=== PATIENT | female | born 1940 | race Caucasian/White ===

== ENCOUNTER 2016-09-13 12:36 | Inpatient (IN) | payer MEDICARE ==
[~2016-09-13] VITALS: Ht 172.7 cm; Wt 98.8 kg
[~2016-09-13 12:36] MED LIST: ASPI325T32 PO; CALC-881 PO; CHOL200020 PO; EMOL177L7 TP; GLUC-123 PO; KEN1O TOP; LAMO100T2 PO; LEVE500T76 PO; LEVO750T39 PO; LIP40 PO; LOSA25TA21 PO; METO-274 PO; NIFE90TA31 PO; POTA10TA12 PO
[2016-09-13 12:52] VITALS: BP 86/47; PULSE 80; RESP 14; O2SAT 97
--- NOTE | 2016-09-13 13:03 | ED.REPORT ---
HPI-Extremity Problem Upper Date of Service Sep 13, 2016 ED Provider: Mango Mejia DO The patient is a 75 year old female with history of eczema, hypertension, hyperlipidemia, coronary artery disease, COPD, atrial fibrillation, asthma, stroke with mild residual weakness, and seizure disorder, who presents to the emergency department for a worsening rash to her left upper extremity. She was seen at urgent care yesterday and placed on Clindamycin. The rash was noted to be worse today when she was re-evaluated at urgent care. It was also reported that she has seemed more confused than normal. Nursing Notes Stated Complaint: CELLULITIS Chief Complaint: Extremity Trauma Nursing Notes Reviewed: Yes Allergies: Coded Allergies: shellfish derived (Verified Allergy, Unknown, 06/02/15) warfarin (Verified Allergy, Unknown, 06/02/15) Uncoded Allergies: TRIMETHOPRIM/SULFA (Allergy, Unknown, severe shakiness, 03/25/15) Scheduled Amlodipine (Amlodipine) 5 Mg Tablet 5 MG PO DAILY Aspirin (Aspirin) 325 Mg Tablet.dr 325 MG PO DAILY Atorvastatin (Lipitor) 40 Mg Tablet 40 MG PO DAILY Calcium Carbonate/Vitamin D3 (Calcium 250+D Tablet) 1 Each Tablet 2 EACH PO DAILY Cholecalciferol (Vitamin D3) (Vitamin D3) 2,000 Unit Tablet 2,000 UNIT PO DAILY Furosemide (Furosemide) 20 Mg Tab 20 MG PO DAILY Gluc/Miguel-MSM#2/C/D3/Colby/Born (Zxncrnxfar-Lzkznljcfgy-AIZ Tab) 1 Each Tablet 1 EACH PO DAILY Hydrochlorothiazide (Hydrochlorothiazide) 25 Mg Tablet 25 MG PO DAILY Lamotrigine (Lamotrigine) 100 Mg Tablet 250 MG PO BID Levetiracetam (Levetiracetam) 500 Mg Tab.er.24h 500 MG PO BID Losartan Potassium (Losartan Potassium) 50 Mg Tablet 50 MG PO DAILY Metoprolol Succinate ER (Metoprolol Succinate ER) 100 Mg Tab.er.24h 100 MG PO DAILY Wayne-3/Dha/Epa/Fish Oil (Fish Oil 1,000 mg Softgel) 1 Each Capsule 15 EACH PO DAILY Petrolatum,White (Vaseline White Petroleum) 5 Gm Oint.pack 1 APPLIC TOPICAL BID Potassium Chloride ER (Potassium Chloride ER) 10 Meq Tablet 10 MEQ PO DAILY TAKE WITH FOOD Triamcinolone Acet (Triamcinolone Acetonide Ointment) 1 Applic/0.25 Gm Oint 60 APPLIC TOP BID General Time Seen by MD: 13:01 Chief Complaint Arm injury left Hx Obtained From: Patient Arrived By: Walk-in Onset Occurred: 3 days ago Symptom Duration: Since onset Location: : Arm left Quality: Painful Severity: Current: No pain currently Severity: Maximum: Mild Pertinent Negative: Pt denies other symptoms Recent Healthcare: No recent hospitalization, Recent doctor visit Similar Sx Previous: No Past Medical History Past Medical History Bilateral pleural effusion, right greater than left, uncertain etiology. Thoracentesis fluid is transudative with final culture results pending Chest discomfort-with multivessel coronary artery disease though no critical lesions History of paroxysmal atrial fibrillation, intolerant of warfarin and TSOACs History of CVA with mild persistent right-sided weakness Seizure disorder, stable Eczema History of asthma Mild dementia Reports: Asthma, COPD, Hyperlipidemia, Hypertension, Stroke Past Surgical History Per patient: brain surgery for abnormal growth behind her eyes Reports: Cholecystectomy Family History Noncontributory Smoking History Never Smoker Social History Alcohol Use: Denies alcohol use Drug Use: Denies drug use Other Social History: Good social support, Local resident Ambulatory Status Cane Review of Systems Musculoskeletal: Reports: Extremity pain, Extremity swelling Skin: Reports Rash, Reports Swelling Neurologic: Reports: Confusion Complete sys rev & neg: except as marked. Physical Exam Initial Vital Signs Vital Signs (First) Date Time Temp Pulse Resp B/P Pulse Ox O2 Delivery O2 Flow Rate FiO2 09/13/16 12:52 35.9 80 14 86/47 97 Room Air Initial VS: Reviewed Head / Eyes: Atraumatic, Normocephalic, PERRL ENT: Mucous membranes moist, Conjunctiva normal, No scleral icterus Neck: Supple, Non-tender, Full range of motion Respiratory: Breath sounds normal, Clear to auscultation, No respiratory distress Cardiovascular: Regular rate & rhythm, Heart sounds normal, Intact distal pulses Abdomen / GI: Soft, Non-tender, No guarding, No rebound, No distention Lymphatic: No lymphadenopathy Lower Extremities: Vascular intact, Neuro intact, No swelling, No tenderness Neurologic: Alert, Oriented, Nonfocal Psychiatric: Mood/affect normal, Behavior normal, Normal thought content General/Constitutional: Awake, Alert, Cooperative Skin: Warm, Dry Rash / Lesion Notes: Extensive left forearm cellulitis with a 1 cm incision from a prior abscess I&D Interpretation & Diagnostics Lab Results Interpretation Result Diagram: 09/13/16 1357 09/13/16 1357 Test 09/13/16 13:57 White Blood Count 15.9th/mm3 (3.8-10.1) Red Blood Count 4.01mil/mm3 (3.90-5.20) Hemoglobin 12.5g/dL (12.0-15.6) Hematocrit 37.6% (35.0-46.0) Mean Corpuscular Volume 93.8fL (81-100) Mean Corpuscular Hemoglobin 31.2pg (27.0-35.0) Mean Corpuscular Hemoglobin Concent 33.2% (32.0-37.0) Red Cell Distribution Width 12.7% (12.3-15.4) Platelet Count 253bil/L (150-400) Neutrophils (%) (Auto) 75% (40-74) Lymphocytes (%) (Auto) 7% (14-46) Monocytes (%) (Auto) 1% (4-12) Eosinophils (%) (Auto) 0% (0-5) Basophils (%) (Auto) 0% (0-3) Band Neutrophils % 17% (1-5) Prothrombin Time 12.3sec (8.1-12.5) Prothromb Time International Ratio 1.15ratio Sodium Level 138mEq/L (134-144) Potassium Level 3.4mEq/L (3.5-5.2) Chloride Level 97mEq/L (97-108) Carbon Dioxide Level 23mmol/L (18-29) Blood Urea Nitrogen 42mg/dL (8-27) Creatinine 1.57mg/dL (0.57-1.00) Estimat Glomerular Filtration Rate 46mL/min (>59) Glucose Level 114mg/dL (60-99) Lactic Acid Level 2.3mmol/L (0.4-2.0) Calcium Level 9.2mg/dL (8.5-10.1) Magnesium Level 1.6mg/dL (1.6-2.6) Total Bilirubin 1.3mg/dL (0.0-1.2) Aspartate Amino Transf (AST/SGOT) 42U/L (0-50) Alanine Aminotransferase (ALT/SGPT) 42U/L (0-32) Alkaline Phosphatase 122U/L (25-165) Troponin T < 0.010ug/L (0.0-0.011) Total Protein 5.9g/dL (6.4-8.4) Albumin 3.3g/dL (3.4-5.0) ECG Interpretation ECG Interpretation: Atrial fibrillation with a rate of 72 LBBB Time: 13:48 Interpreted by: ED physician X-Ray Interpretation Xray Interpretation: IMPRESSION: No radiographic evidence for advanced bony infection. No radiopaque soft tissue foreign bodies. Dictated by: Aamir Olea M.D. on 09/13/2016 at 13:39 X-Ray Ordered: Radius ulna left Interpretation / Wet Read by: Interpret - Radiologist Re-Eval/Medical Decision Med Decision/Clinical Course Cellulitis with signs of sepsis. Patient will be admitted. Source of Hx: Old records Re-Evaluation/Progress #1: Time of Eval: 14:14 Re-Evaluation/Progress Note: Rechecked the patient. She is feeling okay. Re-Evaluation/Progress #2: Time of Eval: 14:30 Re-Evaluation/Progress Note: Discussed plan for admission. Consultation : Referral / Consult Name: Jayashree Wharton MD Consulted With: Hospitalist Requested Call at: 14:42 Call Returned at: 15:20 Diesel Technician: Will see patient, Agrees with eval, Agrees with plan, Accepts admit Counseled Regarding: Diagnosis, Lab results, Need for admission Discharge & Departure Impression: Primary Impression: Cellulitis Site of cellulitis: extremity Site of cellulitis of extremity: upper extremity Laterality: left Qualified Code: L03.114 - Cellulitis of left upper limb Additional Impression: Sepsis Sepsis type: sepsis due to unspecified organism Qualified Code: A41.9 - Sepsis, unspecified organism Disposition: ADMITTED TO HOSPITAL Discharge Condition All VS Reviewed: Yes Condition: Stable Referrals: Arturo Bell DO (PCP) Camille Attestation Portions of this note were transcribed by Blanca Byrd. I, Dr. Mejia personally performed the history, physical exam and medical decision-making; I reviewed and confirmed the accuracy of the information in the transcribed note. Signed by: Camille Eckert, 09/13/2016 at 7505. copies to: Arturo Bell Timothy S DO Sep 13, 2016 13:03 Blanca Byrd Sep 13, 2016 13:08
[2016-09-13] MEDS ORDERED: 0.9% Sodium Chloride 1,000 ML IV ONE (13:40)
[2016-09-13] MEDS ORDERED: 0.9% Sodium Chloride 1,000 ML IV SCH ×3 (13:40→16:22)
--- NOTE | 2016-09-13 13:41 | DRSVH ---
PROCEDURE: X-RAY LEFT FOREARM, TWO VIEWS ([id number]) INDICATIONS: 75 year-old female with left forearm redness and swelling for several days. TECHNIQUE: 2 views of the forearm were acquired. COMPARISON: None. FINDINGS: Bones: No fractures or dislocations. No bony destruction or erosions. No suspicious bony lesions. T here is scaphotrapezial and first carpometacarpal joint degeneration. Soft tissues: No suspicious soft tissue densities. IMPRESSION: No radiographic evidence for advanced bony infection. No radiopaque soft tissue foreign b odies. Dictated by: Aamir Olea M.D. on 09/13/2016 at 13:39 Approved by: Aamir Olea M.D. on 09/13/2016 at 13:40
[2016-09-13 14:00] LABS: Mean Corpuscular Volume 93.8 fL (81-100)
[2016-09-13 14:03] LABS: Mean Corpuscular Hemoglobin 31.2 pg (27.0-35.0); Platelet Count 253 bil/L (150-400)
[2016-09-13] MEDS ORDERED: cefTRIAXone Inj 2,000 MG in Dextrose 5% Minibag Plus 50 ML IV ONE (14:15)
[2016-09-13 14:16] LABS: INR 1.15 ratio
[2016-09-13 14:25] LABS: BASOPHILS % (AUTO) 0 % (0-3); EOSINOPHILS % (AUTO) 0 % (0-5); MONOCYTES % (AUTO) 1 % (4-12); NEUTROPHILS % (AUTO) 75 % (40-74)
[2016-09-13] MEDS ORDERED: Vancomycin Inj 1,750 MG in 0.9% Sodium Chloride 500 ML IV ONE (14:25)
[2016-09-13] MEDS ORDERED: Clindamycin Inj 600 MG in IV Premix 1 EACH IV ONE (14:30)
[2016-09-13 14:42] LABS: TROPONIN T < 0.010 ug/L (0.0-0.011)
[2016-09-13 14:44] LABS: Magnesium 1.6 mg/dL (1.6-2.6)
[2016-09-13] MEDS ORDERED: OMEG-38 PO (15:09)
[2016-09-13] MEDS ORDERED: HYDR25TA4 PO (15:09)
[2016-09-13] MEDS ORDERED: CALC-235 PO (15:09)
[2016-09-13] MEDS ORDERED: PETR5OIN3 TOPICAL (15:09)
[2016-09-13] MEDS ORDERED: FUR20 PO (15:09)
[2016-09-13] MEDS ORDERED: METO-274 PO (15:09)
[2016-09-13] MEDS ORDERED: AMLO5TAB2 PO (15:09)
[2016-09-13] MEDS ORDERED: LOSA50TA37 PO (15:09)
[2016-09-13] MEDS ORDERED: CHOL200025 PO (15:10)
[2016-09-13] MEDS ORDERED: Alum-Mag Hydrox-Simeth 30 mL Suspension PO PRN (16:15)
[2016-09-13] MEDS ORDERED: Ondansetron 2 mg/mL 2 mL Inj IVPUSH PRN (16:15)
[2016-09-13] MEDS: 0.9% Sodium Chloride 1,000 ML IV SCH (16:22)
[2016-09-13] MEDS ORDERED: Magnesium Sulf 2 Gm/50mL Water 2 GM in IV Premix 1 EACH IV ONE (16:25)
[2016-09-13 16:27] VITALS: BP 97/38; PULSE 74; RESP 16
[2016-09-13 16:42] VITALS: BP 105/54; PULSE 76; RESP 16; O2SAT 98
[2016-09-13 16:50] VITALS: PULSE 78
[2016-09-13] MEDS: Heparin 5,000 Unit/mL Inj SUBQ SCH (18:10)
[2016-09-13] MEDS: Sodium Chloride LOK Flush 10 mL Syringe IVFLUSH SCH (18:11)
[2016-09-13] MEDS ORDERED: PETROLATUM WHITE TOPICAL PRN (18:50)
--- NOTE | 2016-09-13 18:51 | PCM.CONPHA ---
Subjective Date of Service: Sep 13, 2016 Reason for Pharmacy Consult: Vancomycin Dosing Objective Vital Signs Date Time Temp Pulse Resp B/P Pulse Ox O2 Delivery O2 Flow Rate FiO2 09/13/16 16:50 78 09/13/16 16:42 36.9 76 16 105/54 98 Room Air 09/13/16 16:27 74 16 97/38 09/13/16 12:52 35.9 80 14 86/47 97 Room Air Weight (Kilograms): 94.900 Height (Feet): 5 Height (Inches): 4.00 Test 09/13/16 13:57 White Blood Count 15.9th/mm3 (3.8-10.1) Red Blood Count 4.01mil/mm3 (3.90-5.20) Hemoglobin 12.5g/dL (12.0-15.6) Hematocrit 37.6% (35.0-46.0) Mean Corpuscular Volume 93.8fL (81-100) Mean Corpuscular Hemoglobin 31.2pg (27.0-35.0) Mean Corpuscular Hemoglobin Concent 33.2% (32.0-37.0) Red Cell Distribution Width 12.7% (12.3-15.4) Platelet Count 253bil/L (150-400) Neutrophils (%) (Auto) 75% (40-74) Lymphocytes (%) (Auto) 7% (14-46) Monocytes (%) (Auto) 1% (4-12) Eosinophils (%) (Auto) 0% (0-5) Basophils (%) (Auto) 0% (0-3) Band Neutrophils % 17% (1-5) Prothrombin Time 12.3sec (8.1-12.5) Prothromb Time International Ratio 1.15ratio Sodium Level 138mEq/L (134-144) Potassium Level 3.4mEq/L (3.5-5.2) Chloride Level 97mEq/L (97-108) Carbon Dioxide Level 23mmol/L (18-29) Blood Urea Nitrogen 42mg/dL (8-27) Creatinine 1.57mg/dL (0.57-1.00) Estimat Glomerular Filtration Rate 46mL/min (>59) Glucose Level 114mg/dL (60-99) Lactic Acid Level 2.3mmol/L (0.4-2.0) Calcium Level 9.2mg/dL (8.5-10.1) Magnesium Level 1.6mg/dL (1.6-2.6) Total Bilirubin 1.3mg/dL (0.0-1.2) Aspartate Amino Transf (AST/SGOT) 42U/L (0-50) Alanine Aminotransferase (ALT/SGPT) 42U/L (0-32) Alkaline Phosphatase 122U/L (25-165) Troponin T < 0.010ug/L (0.0-0.011) Total Protein 5.9g/dL (6.4-8.4) Albumin 3.3g/dL (3.4-5.0) Assessment/Plan Assessment/Plan Vancomycin dosing per pharmacy Indication: sepsis, cellulitis Vancomycin trough goal: 15-20 Patient received vancomycin 1750 mg IV one time loading dose in the ED. Possible YOUNG (SCr = 1.57, CrCl ~35 mL/min today), SCr was 0.56 in August 2015 -- so will check trough 24 hours after bolus prior to ordering maintenance dose. Vancomycin trough has been ordered for 09/14/16 @ 1430. Pharmacy to continue to monitor and dose vancomycin daily. Thank you, Nuria Holman Pharmacist Nuria Holman Sep 13, 2016 18:51
[2016-09-13 19:49] VITALS: BP 107/65; PULSE 95; RESP 20; O2SAT 92
--- NOTE | 2016-09-13 19:51 | NUR ---
Arrived from ED Pt arrived from ED at approximately 1630. Pt ambulated to bed with cane. Cellulitis left arm, hard bump left upper arm and left lower arm. VSS Care continues.
[2016-09-13 20:37] VITALS: BP 109/45; PULSE 86; RESP 16; O2SAT 97
--- NOTE | 2016-09-13 21:15 | DRSVH ---
PROCEDURE: CT UPPER EXTREMITY LT W CON INDICATIONS: 75 year-old female with left forearm redness and swelling for several days. TECHNIQUE: After the administration of intravenous contrast, 3 mm axial sections acquired of the left upper extr emity, with coronal and sagittal reformats. For radiation dose reduction, the following was used: a utomated exposure control, adjustment of mA and/or kV according to patient size. COMPARISON: [facility], US, US EXTREMITY LTD, 09/12/2016, 13:53. [facility], CR, XR FOREARM 2VW LT, 09/13/2016, 13:00. FINDINGS: Image quality: Excellent. Bones: No fracture or dislocation. No bony erosion or periosteal reaction. Soft tissues: There is diffuse soft tissue edema and thickening consistent with cellulitis. There is subcutaneous fluid. A subtle rim-enhancing subcutaneous fluid collection is noted over the olecranon measuring 1.2 x 5.3 x 8.5 cm, suspicious for developing abscess. IMPRESSION: 1. Skin thickening and subcutaneous edema consistent with cellulitis. 2. Subcutaneous fluid collection around elbow suspicious with subtle rim-enhancement, suspicious for developing abscess. Dictated by: Ward Moreno M.D. on 09/13/2016 at 20:57 Approved by: Ward Moreno M.D. on 09/13/2016 at 21:14
[2016-09-13] MEDS: lamoTRIgine 100 mg Tablet PO SCH (22:28)
[2016-09-13] MEDS: levETIRAcetam 500 mg Tablet PO SCH (22:28)
[2016-09-14] VITALS (20 sets, daily range): BP systolic 97–139; BP diastolic 42–73; PULSE 79–130; RESP 14–18; O2SAT 90–98
[2016-09-14] MEDS: Heparin 5,000 Unit/mL Inj SUBQ SCH ×3 (00:30→15:44)
[2016-09-14] MEDS: Sodium Chloride LOK Flush 10 mL Syringe IVFLUSH SCH ×3 (00:30→15:42)
[2016-09-14] MEDS: Benzocaine-Menthol Lozenge 2/Pkg PO PRN ×3 (00:30→05:34)
--- NOTE | 2016-09-14 00:59 | PCM.HPMED ---
Subjective Date of Service Sep 13, 2016 Primary Provider: Admitting Physician: Jayashree Wharton MD Primary Care Physician: Arturo Bell DO Attending Physician: Jayashree Wharton MD History of Present Illness: cc: left arm cellulitis/abscess worse HISTORY was OBTAINED FROM PATIENT / MEDITECH NOTES History of present illness 75-year-old female, w/ chronic diffuse eczema, went to for Left forearmproximal ulnar abscess lanced w/ rocephine 2 days ago, unable to fill clindamycin script, presented to urgent care for follow up w/ worsened diffuse forearm cellulitis and sent to ER today. Per ER notes and floor RN, she is confused. not much pain, no paresthesia, able to use remote control w/ affected arm. does not remember prior boil hx. no trauma hx. mild diffuse excoriations throughout body due to eczema. In the ER, low temperature, low blood pressure, vancomycin and Rocephin, 1 L normal saline Review of Systems - none of the following - F/C/sick contact / wt change/ JACK / lightheaded / dizziness / sob / cough / cp / acid reflux / n/v/diarrhea / bleeding/bruising / leg swelling / change in voiding / yeast infections / rash ambulates FAMILY HX eczema SOCIAL HX never smoker no alcohol use MEDICATIONS Scheduled Amlodipine (Amlodipine) 5 Mg Tablet 5 MG PO DAILY Aspirin (Aspirin) 325 Mg Tablet.dr 325 MG PO DAILY Atorvastatin (Lipitor) 40 Mg Tablet 40 MG PO DAILY Calcium Carbonate/Vitamin D3 (Calcium 250+D Tablet) 1 Each Tablet 2 EACH PO DAILY Cholecalciferol (Vitamin D3) (Vitamin D3) 2,000 Unit Tablet 2,000 UNIT PO DAILY Furosemide (Furosemide) 20 Mg Tab 20 MG PO DAILY Gluc/Miguel-MSM#2/C/D3/Colby/Born (Wesyjaugdm-Lcrkagjknng-WLH Tab) 1 Each Tablet 1 EACH PO DAILY Hydrochlorothiazide (Hydrochlorothiazide) 25 Mg Tablet 25 MG PO DAILY Lamotrigine (Lamotrigine) 100 Mg Tablet 250 MG PO BID Levetiracetam (Levetiracetam) 500 Mg Tab.er.24h 500 MG PO BID Losartan Potassium (Losartan Potassium) 50 Mg Tablet 50 MG PO DAILY Metoprolol Succinate ER (Metoprolol Succinate ER) 100 Mg Tab.er.24h 100 MG PO DAILY Denver-3/Dha/Epa/Fish Oil (Fish Oil 1,000 mg Softgel) 1 Each Capsule 15 EACH PO DAILY Petrolatum,White (Vaseline White Petroleum) 5 Gm Oint.pack 1 APPLIC TOPICAL BID Potassium Chloride ER (Potassium Chloride ER) 10 Meq Tablet 10 MEQ PO DAILY TAKE WITH FOOD Triamcinolone Acet (Triamcinolone Acetonide Ointment) 1 Applic/0.25 Gm Oint 60 APPLIC TOP BID Past Medical/Surgical HX Mild dementia Cataracts CHF/atrial fibrillation since winter 2015, intermittent paroxysmal intolerance of warfarin/anticogaulants / CVA November 2005 with residual weakness Seizure/brain tumor Asthma/COPD/pneumonia Kidney stone Wrist arthritis/eczema Tonsillectomy hysterectomy appendectomy cholecystectomy brain surgery Allergies Coded Allergies: shellfish derived (Verified Allergy, Unknown, 06/02/15) warfarin (Verified Allergy, Unknown, 06/02/15) Uncoded Allergies: TRIMETHOPRIM/SULFA (Allergy, Unknown, severe shakiness, 03/25/15) PMH Social History Hx Alcohol Use: No Hx Substance Use: No Hx Tobacco Use: No Smoking Status: Never Smoker Exam Vital Signs Vital Sign - Last Date Time Temp Pulse Resp B/P Pulse Ox O2 Delivery O2 Flow Rate FiO2 09/13/16 12:52 35.9 80 14 86/47 97 Room Air Lab and Diagnostics Labs Exam on admission room air NAD A and O x 3 mood affect WNL NC/AT no icterus no injected eyes EOMI PERRL /no pharyngeal lesions/ no oral lesions / hearing intact Supple neck CTAB equal chest rise / no accessory muscle use / speaks in full sentences / no rrw RRR S1 S2 / no mrg / 2+ radial pulses Soft nt nd + BS no hepatosplenomegaly No edema no cyanosis no ecchymosis of lower extremities No rash / no jaundice EDWARDS symmetrical facies left forearm diffusely erythematous fluctuant proximal radial aspect, prior Incision present at proximal ulnar aspect, poor pulse but cap refill comparable bilateral STUDIES EKG atrial fibrillation, left bundle branch block Trop normal at 2 PM BNP lactic acid 2.3 UA pending Creatinine 1.57 << 0.5-0.68 Magnesium 1.6 LFT INR 1.15, ALP 42, bilirubin 1.3 WBC 15.9, left shift bandemia Imaging CT forearm indicative of abscess by olecranon forearm Xray- no advanced bony infection Result Diagram: 09/13/16 1357 09/13/16 1357 Assessment & Plan Active issues and reason for admission Sepsis, lactic acidosis due to cellulitis, s/p lanced ulnar aspect abscess at urgent care, did not take outpatient clindamycin, developed new radial aspect forearm (on exam) and olecranon (on CT)abscesses, contributory chronic eczema associated excoriations throughout body. --appreciate Dr Salmon/gen surg -- IV fluids, hold blood pressure medications -- Rocephin and vancomycin -- npo MN, hold am ASA.heparin new YOUNG --IVF 100/hr --low threshold to dc vancomycin Chronic issues known prior to admission, present on admission Mild dementia Cataracts CHF/atrial fibrillation since winter 2015, intermittent paroxysmal intolerance of warfarin/anticogaulants / CVA November 2005 with residual weakness Seizure/brain tumor Asthma/COPD/pneumonia Kidney stone Wrist arthritis/eczema Diet cardiac / NPO MN DVT prophylaxis heparin scd ambulate Code full, Per ER nurse, family is bringing in advance directive Assessment and plan were discussed with patient Jayashree Wharton MD Sep 13, 2016 16:22
[2016-09-14] MEDS: 0.9% Sodium Chloride 1,000 ML IV SCH ×3 (01:01→15:42)
--- NOTE | 2016-09-14 02:25 | CONS ---
[address] [address] CONSULTATION REPORT PATIENT: TAMMIE DICK : 1940 MR#: [id number] ADMIT: 09/13/2016 JOB ID: [id number] DATE OF SERVICE: 09/13/2016 CHIEF COMPLAINT: This is a 75-year-old woman with a left forearm abscess. This consultation is requested by Jayashree Wharton MD. HISTORY OF PRESENT ILLNESS: This is a 75-year-old woman with a history of eczema who presented with a left forearm abscess to urgent care. A limited incision and drainage was performed with what the patient describes as copious purulent drainage. However, she developed additional swelling and redness and presented to the emergency department. An x-ray was performed without sign of bony abnormality. She is admitted to the hospital and is being instituted on antibiotics. She ate some yogurt earlier today. White blood cell count is 15.9, and she is afebrile. PAST MEDICAL HISTORY: 1. History of pleural effusions. 2. History of paroxysmal atrial fibrillation, intolerant of warfarin. 3. History of CVA. 4. Seizure disorder. 5. Eczema. 6. History of asthma. 7. Dementia. PAST SURGICAL HISTORY: 1. Cholecystectomy. 2. History of a brain surgery of unknown etiology. MEDICATIONS: Amlodipine, aspirin, atorvastatin, calcium carbonate, vitamin D 3, furosemide, hydrochlorothiazide, lamotrigine, levetiracetam, losartan, metoprolol, potassium, triamcinolone. ALLERGIES: 1. SHELLFISH. 2. COUMADIN, 3. TRIMETHOPRIM/SULFA. FAMILY HISTORY: Reviewed and noncontributory. SOCIAL HISTORY: She has never been a smoker. She denies alcohol and drug use. REVIEW OF SYSTEMS: Eleven point review of systems is positive for left upper extremity pain and swelling as well as a rash. She reports some confusion. It is otherwise negative. PHYSICAL EXAMINATION: Temperature 35.9, heart rate 80, blood pressure 86/47, respiratory rate of 14, saturation 97% on room air. General: Awake, alert, no acute distress. Head: Normocephalic. Neck: Supple. Cardiac: Regular rate and rhythm. Respiratory: Clear to auscultation bilaterally at the apices. Abdomen: Soft. Extremities: Bilateral upper extremities are examined. The left upper extremity has diffuse erythema and fluctuance on the radial aspect just distal to the elbow. On the ulnar aspect at the mid point is a previous incision and drainage site without active purulence. There is no sign of infection on the right. LABORATORIES: White blood cell count of 15.9. CBC is otherwise within normal limits. Comprehensive metabolic panel is normal with exception of potassium 3.4, BUN 42, creatinine 1.57, glucose 114, bilirubin 1.3, ALT of 42, albumin 3.3. Lactate is 2.3. IMAGING: X-ray of the forearm shows no radiographic evidence for bony infection and no radiopaque soft tissue foreign bodies. ASSESSMENT: A 75-year-old woman with cellulitis and associated abscess of the left forearm. RECOMMENDATIONS: I agree with institution of parenteral antibiotics. I have ordered a CT scan of the forearm to determine the depth of infection. I have consented and booked her for incision and drainage for tomorrow. She may eat dinner tonight and should be n.p.o. at midnight. My partner, Dr. Santiago, is the surgeon bond clerk tomorrow, and his decision making with respect to this case will be dependent upon the findings on CT scan. Thank you very much for this interesting consultation.
[2016-09-14 02:52] LABS: APPEARANCE,URINE HAZY (CLEAR,HAZY); COLOR,URINE YELLOW (YELLOW); OCCULT BLOOD,URINE TRACE (NEGATIVE); UROBILINOGEN,URINE NORMAL (NORMAL)
[2016-09-14 04:20] LABS: Mean Corpuscular Hemoglobin 31.2 pg (27.0-35.0); Platelet Count 252 bil/L (150-400)
[2016-09-14 04:44] LABS: BASOPHILS % (AUTO) 0 % (0-3); EOSINOPHILS % (AUTO) 1 % (0-5); MONOCYTES % (AUTO) 2 % (4-12); NEUTROPHILS % (AUTO) 65 % (40-74)
--- NOTE | 2016-09-14 06:17 | NUR ---
Tachycardia Pt afib 90s throughout shift; transient increase in HR at approx. 0300 with assc. chills, mild increase in temperature, difficulty breathing, weakness, and "hallucinations" per pt report. Pt states "I think I'm having a reaction to whatever you're giving me - does that have shellfish in it?", gesturing to IVF. Pt educated to NS infusion. paged r/t prior LUE CT earlier in shift that utilized contrast; no new orders placed. Pt demonstrates spontaneous improvement throughout rest of shift. VSS.
[2016-09-14] MEDS: cefTRIAXone Inj 2,000 MG in Dextrose 5% Minibag Plus 50 ML IV SCH (07:47)
[2016-09-14] MEDS: lamoTRIgine 100 mg Tablet PO SCH ×2 (07:47→22:37)
[2016-09-14] MEDS: levETIRAcetam 500 mg Tablet PO SCH ×2 (07:47→22:36)
[2016-09-14] MEDS: Vancomycin Dose per Pharmacist XX SCH (07:48)
[2016-09-14] MEDS ORDERED: Vancomycin Dose per Pharmacist XX SCH (08:30)
[2016-09-14 08:40] LABS: BASOPHILS % (AUTO) 0.1 % (0-3); EOSINOPHILS % (AUTO) 1.1 % (0-5); MONOCYTES % (AUTO) 5.2 % (4-12); Mean Corpuscular Hemoglobin 31.4 pg (27.0-35.0); Mean Corpuscular Volume 93.5 fL (81-100); NEUTROPHILS % (AUTO) 83.3 % (40-74); Platelet Count 261 bil/L (150-400)
--- NOTE | 2016-09-14 09:50 | NUR ---
To OR pt a/ox3. pt transported to OR via [facility]. SL. scd sleeves on. telemetry informed. departed unit about 0950.
[2016-09-14] MEDS ORDERED: Lactated Ringer's 1,000 ML IV ONE ×2 (10:10→10:46)
[2016-09-14] MEDS ORDERED: Ketamine 10 mg/mL 20 mL Inj ONE (10:18)
[2016-09-14] MEDS ORDERED: fentaNYL-PF 50 mCg/mL 2 mL Inj ONE (10:18)
[2016-09-14] MEDS ORDERED: Propofol 10,000 mCg/mL 20 mL Inj ONE (10:18)
[2016-09-14] MEDS ORDERED: Ondansetron 2 mg/mL 2 mL Inj ONE (10:18)
[2016-09-14] MEDS ORDERED: Lactated Ringer's 500 ML IV PRN (10:46)
[2016-09-14] MEDS ORDERED: Lactated Ringer's 1,000 ML IV SCH (10:46)
--- NOTE | 2016-09-14 10:46 | PCM.HPANE ---
Patient Data Surgeon Admitting Provider:Jayashree Wharton MD Attending Provider:Jayashree Wharton MD Primary Care Physician:Arturo Bell DO Other Provider: Reason for Visit Cellulitis,Sepsis Ht/WT & BMI Height (Feet): 5 Height (Inches): 8.00 Weight (Kilograms): 94.500 Body Mass Index 35.18 Allergies Coded Allergies: shellfish derived (Verified Allergy, Unknown, 06/02/15) warfarin (Verified Allergy, Unknown, 06/02/15) Uncoded Allergies: TRIMETHOPRIM/SULFA (Allergy, Unknown, severe shakiness, 03/25/15) Past Anesthesia History Anesthesia History: Positive for:: Abnormal Airway (poor dental hygiene- fragile appearing teeth. One front tooth missing), Denies:: Anesthesia Reactions, Difficult Intubation Diabetes History Hx Diabetes?: No MRSA MRSA: No Medications Hypertension Medication: No Home Meds Incl Beta Oscar: No Reported Medications Cholecalciferol (Vitamin D3) (Vitamin D3)2,000 Unit Tablet2,000 Unit PO DAILY 09/13/16 Metoprolol Succinate ER 100 Mg Tab.er.43b511 Mg PO DAILY 09/13/16 Petrolatum,White (Vaseline White Petroleum)5 Gm Oint.pack1 Applic TOPICAL BID 09/13/16 Losartan Potassium 50 Mg Ivmwug95 Mg PO DAILY 09/13/16 Hydrochlorothiazide 25 Mg Ntfcmd65 Mg PO DAILY 09/13/16 Furosemide 20 Mg Tab20 Mg PO DAILY 09/13/16 [place]-3/Dha/Epa/Fish Oil (Fish Oil 1,000 mg Softgel)1 Each Iyawgxx17 Each PO DAILY 09/13/16 Calcium Carbonate/Vitamin D3 (Calcium 250+D Tablet)1 Each Tablet2 Each PO DAILY 09/13/16 Amlodipine 5 Mg Tablet5 Mg PO DAILY 09/13/16 Triamcinolone Acet (Triamcinolone Acetonide Ointment)1 Applic/0.25 Gm Oint60 Applic TOP BID 08/22/15 Potassium Chloride ER 10 Meq Rjawyp26 Meq PO DAILY TAKE WITH FOOD 08/22/15 Atorvastatin (Lipitor)40 Mg Muwhcl96 Mg PO DAILY 08/22/15 Levetiracetam 500 Mg Tab.er.48n791 Mg PO BID 11/16/13 Lamotrigine 100 Mg Wylbzr506 Mg PO BID 11/16/13 Gluc/Miguel-MSM#2/C/D3/Colby/Born (Xurykodffw-Cqutqtxzwnk-QQE Tab)1 Each Tablet1 Each PO DAILY 11/16/13 Aspirin 325 Mg Tablet.dr325 Mg PO DAILY 11/16/13 Discontinued Reported Medications Cholecalciferol (Vitamin D3) (Vitamin D-3)2,000 Unit Capsule2,000 Unit PO DAILY 11/16/13 Nifedipine ER 90 Mg Tab.er.2490 Mg PO DAILY #30 TABLET Ref 0 11/16/13 Emollient Combination No.92 (Lubriderm Daily Moisture)177 Ml Bznwwo383 Ml TP DAILY 11/16/13 Calcium Carb & Cit/Vitamin D3 (Calcium + Vitamin D3 Caplet)1 Each Tablet.er2 Each PO DAILY 11/16/13 Discontinued Scripts Levofloxacin 750 Mg Obetfd505 Mg PO DAILY 5 Days Ref 0 Prov:Gurwinder Villar MD 08/26/15 Metoprolol Succinate ER 100 Mg Tab.er.00d223 Mg PO DAILY #60 TABLET Ref 0 Prov:Ramón Gilbert MD 11/19/13 Losartan Potassium 25 Mg Nitipm21 Mg PO DAILY #60 TABLET Prov:Ramón Gilbert MD 11/19/13 History History of ENT Problems?: Yes HEENT History: Positive for:: Cataracts (left eye, needs surgery) Denies:: Abnormal Airway Difficult Intubation Dysphagia Glaucoma Sinus Problem Hx of Heart Problems?: Yes Cardiovascular History: Positive for:: Chest Pain Congestive Heart Failure Edema Hypertension Irregular Heartbeat (ATRIAL FIBRILLLATION,INTERMITTENT,DISCOVERED WITHIN LAST 6 MONTHS) Denies:: Cardiac Surgery Heart Murmur Pacemaker Thrombophlebitis Hx of Respiratory Problem?: Yes Respiratory History: Positive for:: Asthma COPD Dyspnea Pneumonia Denies:: Chest Surgery Emphysema Hemoptysis Tuberculosis Hx Neurologic Problems?: Yes Neurological History: Positive for:: CVA (November 2005) Seizures (BROUGHT ON BY BRAIN TUMOR) Denies:: Alzheimer's Disease Dementia Dizziness Headaches Parkinson's Disease Hx of GI Problems?: No Gastrointestinal History: Denies:: Diverticulitis Gastroesphageal Reflux Gastrointestinal Bleeding Heartburn Hepatitis Hiatal Hernia Rectal Bleeding Hx of Problems?: Yes Genitourinary History: Positive for:: Kidney Stones (one kidney stone) Denies:: HX of Hemodialysis Urinary Tract Infection HX of Peritoneal Dialysis: No Female Hx: Denies:: Currently Endometriosis Pelvic Inflammatory Problems with Breasts? Hx Musculoskeletal Problems?: Yes Musculoskeletal History: Denies:: Back Injury Joint Replacement Musculoskeletal Trauma Hx of Psycho/Social Problems?: No Hx Surgeries?: Yes (TONSILLECTOMY,HYSTERECTOMY,APENDECTOMY) Hx Any Other Health Problems?: Yes Other History: Positive for:: Hospitalization (pneumonia) Denies:: Cancer Thyroid Disease History Blood Transfusions: Positive for:: Accept Blood Products? Blood Transfusions (2005) Denies:: Blood Transfuse Reaction Hx Diabetes: No Hx Alcohol Use: NoHx Substance Use: No Smoking Status: Never Smoker Have You Smoked inLast 12 mo: No Stop/Bang Treated for Sleep Apnea?: No Do You Have a CPAP Machine?: No S-Snoring: Do You Snore Loudly: No T-Tired: feel tired, fatigued: No O-Obsered: Observed not breath: No P-Blood Pressure: treated: Yes B- Body Mass Index > 35 kg/m2: No A- Age over 50: Yes N- Neck Large Circumference: No G- Gender Male: No LYNETTE Total Score: 1 LYNETTE Risk Assessment: Low Risk, <3 Yes LYNETTE Category 4 OutPt Procedure: Yes Risk Assessment Category Category 1A: Patient has history of documented sleep apnea, and HAS NOT received any narcotic, sedative or anesthesia administration during this stay. Category 1B: Patient has history of documented sleep apnea, and HAS received any narcotic , sedative or anesthesia administration during this stay Category 2: Patient has SUSPECTED Obstructive Sleep Apnea, and HAS received any narcotic , sedative or anesthesia administration during this stay. Category 3: Patient has SUSPECTED Obstructive Sleep Apnea and HAS NOT received narcotic, sedative or anesthesia administration during this stay. Category 4: Outpatient in Procedural Areas with known sleep apnea or who screen positive for High Risk via the STOP/BANG questionnaire. Exam Exam Vital Signs Vital Signs Date Time Temp Pulse Resp B/P Pulse Ox O2 Delivery O2 Flow Rate FiO2 09/14/16 07:25 37.8 123 18 130/62 94 Room Air 09/14/16 05:26 79 09/14/16 03:55 37.9 118 16 111/52 97 Room Air General Appearance: Alert, Oriented X3, Cooperative, No Acute Distress HEENT/AIRWAY: MP 2 Lungs: Clear to Auscultation, Normal Air Movement Heart: Exam Unremarkable, Regular Rate/Rhythm, No Murmurs/Rubs/Gallops Meds/Labs/Diagnostics Admission Meds Current Medications Sodium Chloride 1,000 ml @ 0 mls/hr Q0M ONCE IV Last administered on 14:21; Start 09/13/16 at 13:40; Stop 09/13/16 at 13:41; Status DC Ceftriaxone Sodium 2000 mg/ Dextrose/Water 50 ml @ 100 mls/hr ONCE ONCE IV Last administered on 09/13/16 14:15; Start 09/13/16 at 14:15; Stop 09/13/16 at 14:44; Status DC Vancomycin HCl 1750 mg/Sodium Chloride 500 ml @ 333.333 mls/hr OT ONCE IV Last administered on 09/13/16 15:19; Start 09/13/16 at 14:25; Stop 09/13/16 at 15:54; Status DC Magnesium Sulfate 2 gm/Premix 50 ml @ 50 mls/hr ONCE ONCE IV Last administered on 09/13/16 18:03; Start 09/13/16 at 16:25; Stop 09/13/16 at 17:24 ; Status DC Ceftriaxone Sodium/Dextrose/ Water (Rocephin Inj/ D5W Minibag Plus) 50 ml @ 100 mls/hr Q24 IV Last administered on 09/14/16 07:47; Start 09/14/16 at 08:30 Heparin Sodium (Porcine) 5000 unit 5,000 unit Q8 SUBQ Last administered on 09/14 00:30; Start 09/13/16 at 17:00 Sodium Chloride (Normal Saline) 1,000 ml @ 100 mls/hr Q10H IV Last administered on 09/14/16 01:01; Start 09/13/16 at 16:22 Sodium Chloride (Saline Mone Flush) 10 ml MONE IVFLUSH Last administered on 00:30; Start 09/13/16 at 16:30 Lamotrigine (LaMICtal) 250 mg BID PO Last administered on 09/14/16 07:47; Start 09/13/16 at 22:00 Levetriacetam (Keppra) 500 mg BID PO Last administered on 09/14/16 07:47; Start 09/13/16 at 22:00 Atorvastatin Calcium (Lipitor) 40 mg DAILY PO Last administered on 4/15/17at 07 :47; Start 09/14/16 at 08:30 Labs Test 09/13/16 13:57 09/14/16 02:30 09/14/16 04:00 09/14/16 08:25 Prothrombin Time 12.3sec (8.1-12.5) Prothromb Time International Ratio 1.15ratio Magnesium Level 1.6mg/dL (1.6-2.6) Troponin T < 0.010ug/L (0.0-0.011) Urine Color Yellow (YELLOW) Urine Appearance Hazy (CLEAR,HAZY) Urine pH 6.0 (5.0-8.0) Urine Specific [place] 1.030 (1.003-1.035) Urine Protein Tracemg/dL (NEG,TRACE) Urine Glucose (UA) Negativemg/dL (NEGATIVE) Urine Ketones Negativemg/dL (NEGATIVE) Urine Occult Blood Trace (NEGATIVE) Urine Nitrite Negative (NEGATIVE) Urine Bilirubin Negative (NEGATIVE) Urine Urobilinogen Normalmg/dL (NORMAL) Urine Leukocyte Esterase Trace (NEGATIVE) Urine RBC 0-2/hpf (0-2) Urine WBC 6-10/hpf (0-5) Urine Epithelial Cells Moderate/hpf (NONE-MOD) Urine Crystals None seen (NONE SEEN) Urine Bacteria Few/hpf (NONE-FEW) Urine Hyaline Casts None/lpf (NONE) Urine Granular Casts None seen (NONE SEEN) Urine Waxy Casts None seen (NONE SEEN) Urine Red Blood Cell Casts None seen (NONE SEEN) Urine White Blood Cell Casts None seen (NONE SEEN) Urine Mucus None seen (None Seen) Urine Trichomonas None seen (NONE SEEN) Urine Yeast None (NONE SEEN) Urinalysis Comment None Urine Culture Reflexed Indicated Band Neutrophils % 22% (1-5) Myelocytes % 1% (0-0) White Blood Count 15.9th/mm3 (3.8-10.1) Red Blood Count 4.01mil/mm3 (3.90-5.20) Hemoglobin 12.6g/dL (12.0-15.6) Hematocrit 37.5% (35.0-46.0) Mean Corpuscular Volume 93.5fL (81-100) Mean Corpuscular Hemoglobin 31.4pg (27.0-35.0) Mean Corpuscular Hemoglobin Concent 33.6% (32.0-37.0) Red Cell Distribution Width 12.9% (12.3-15.4) Platelet Count 261bil/L (150-400) Neutrophils (%) (Auto) 83.3% (40-74) Lymphocytes (%) (Auto) 7.4% (14-46) Monocytes (%) (Auto) 5.2% (4-12) Eosinophils (%) (Auto) 1.1% (0-5) Basophils (%) (Auto) 0.1% (0-3) Sodium Level 141mEq/L (134-144) Potassium Level 3.4mEq/L (3.5-5.2) Chloride Level 100mEq/L (97-108) Carbon Dioxide Level 22mmol/L (18-29) Blood Urea Nitrogen 27mg/dL (8-27) Creatinine 0.85mg/dL (0.57-1.00) Estimat Glomerular Filtration Rate 93mL/min (>59) Glucose Level 114mg/dL (60-99) Lactic Acid Level 1.6mmol/L (0.4-2.0) Calcium Level 9.4mg/dL (8.5-10.1) Total Bilirubin 0.7mg/dL (0.0-1.2) Aspartate Amino Transf (AST/SGOT) 40U/L (0-50) Alanine Aminotransferase (ALT/SGPT) 39U/L (0-32) Alkaline Phosphatase 162U/L (25-165) Total Protein 6.2g/dL (6.4-8.4) Albumin 3.1g/dL (3.4-5.0) Procalcitonin 1.38ng/mL (0.00-0.08) Plan Impression Patient chart reviewed, patient interviewed and anesthestic plan with risks, benefits, and alternatives discussed, and informed consent obtained. ASA Physical Status: ASA3 Severe Disease (hx afib, arm infection, hx brain tumor) Anesthetic Plan: GA Bene/Risks/Altern/Consents: Yes Placido Abarca MD Sep 14, 2016 10:46
[2016-09-14] MEDS ORDERED: MetoCLOpramide 5 mg/mL 2 mL Inj IVPUSH PRN (10:50)
[2016-09-14] MEDS ORDERED: Ondansetron 2 mg/mL 2 mL Inj IVPUSH PRN (10:50)
[2016-09-14] MEDS ORDERED: Phenylephrine 10,000 mCg/mL Inj IVPUSH PRN (10:50)
[2016-09-14] MEDS ORDERED: EPHEDrine Sulfate 50 mg/mL Inj IVPUSH PRN (10:50)
[2016-09-14] MEDS: fentaNYL-PF 50 mCg/mL 2 mL Inj IVPUSH PRN ×2 (11:38→12:00)
[2016-09-14] MEDS: HYDROmorphone 1 mg/mL Inj IVPUSH PRN ×3 (11:41→12:09)
--- NOTE | 2016-09-14 12:28 | PCM.ANEP1 ---
Post Anesthesia Phase 1 PACU Phase 1 Assessment Date of Service: Sep 13, 2016 Vital Signs Vital Signs Date Time Temp Pulse Resp B/P Pulse Ox O2 Delivery O2 Flow Rate FiO2 09/14/16 12:05 120 16 130/60 95 Room Air 09/14/16 12:00 104 16 111/54 98 Room Air 09/14/16 11:55 106 14 139/49 98 Room Air 09/14/16 11:50 100 17 132/54 97 Simple Mask 8 09/14/16 11:45 102 15 127/73 97 Simple Mask 8 09/14/16 11:40 100 16 135/57 96 Simple Mask 8 09/14/16 11:35 36.8 94 16 130/68 96 Simple Mask 8 09/14/16 11:32 96 09/14/16 07:25 37.8 123 18 130/62 94 Room Air 09/14/16 05:26 79 Anesthetic Administered: GA Level of Alertness: Awake, talking EDWARDS's with Equal Strength: Yes Pain: No Nausea or Vomiting: No Oxygen Delivery: Simple Mask Lungs: Clear to Auscultation, Normal Air Movement Dermatome Level: Full Sensation Placido Abarca MD Sep 14, 2016 12:28
--- NOTE | 2016-09-14 12:28 | PCM.ANEP2 ---
Post Anesthesia Evaluation ASA/CMS Post Anesthesia VS in Patient's Normal Range?: Yes Resp Stable; Airway Patent?: Yes CV Function & Hydration Stable: Yes Mental Status Recovered?: Yes Pain control Satisfactory?: Yes N/V Control Satisfactory?: Yes Placido Abarca MD Sep 14, 2016 12:28
--- NOTE | 2016-09-14 13:02 | NUR ---
Return to room 2027 pt alert and oriented, drowsy. responsive. VSS. O2 at 2L. LUE elevated on pillows. ice chips given. will continue to monitor.
--- NOTE | 2016-09-14 13:32 | PCM.PNMED ---
Subjective Date of Service Sep 14, 2016 Subjective Overnight patient remained in A. fib throughout the shift, reported chills and mild increase in temperature with difficulty breathing. Initial reports "hallucinations" per patient stating that she believes she was having a reaction to medication that she was administered. Today: Patient awake and alert sitting in hospital bed with family member at bedside in no apparent distress. Surgical team also in room prepping patient for scheduled surgery. Exam Vital Signs Vital Sign - Last Date Time Temp Pulse Resp B/P Pulse Ox O2 Delivery O2 Flow Rate FiO2 09/14/16 12:36 37.3 125 18 134/63 90 Nasal Cannula 2.00 Intake and Output 09/13/16 09/13/16 09/14/16 Cumulative From/Thru 15:00 23:00 07:00 09/13/16 12:52 - 09/14/16 06:35 Intake Total 1670 ml 963 ml 2633 ml Output Total 0 ml 300 ml 300 ml Balance 1670 ml 663 ml 2333 ml Intake Oral 0 ml 400 ml 400 ml IV Total 1670 ml 563 ml 2233 ml Output Urine Total 0 ml 300 ml 300 ml # Voids 4 4 Exam General: Awake and alert laying in hospital bed in no acute distress, well- developed, well-nourished, appropriately interactive HEENT: Normocephalic, atraumatic. External ears without defect. Pupils equal, round, and reactive to light and accommodation. Neck: Supple with full range of motion. Cardiovascular: Tachycardic rate with irregularly irregular rhythm. No murmurs present Pulmonary: Clear to auscultation bilaterally with no crackles, wheezes, or rhonchi. Normal respiratory effort with no use of accessory muscles. Abdomen: Bowel tones present. Soft, nontender, nondistended. Extremities: Left upper extremity swelling and erythema left lateral epicondyle area tender to palpation Neurological: Cranial nerves grossly intact. Psychiatric: Normal mood and affect. Alert and oriented to person, place, and time. IVs and Medications Medications Reviewed: Medications were reviewed in detail Lab and Diagnostics Result Diagram: 09/14/1682409/14/16824 Microbiology Abscess culture pending, urine culture pending, blood culture pending X-Rays, CTs and MRIs . X-RAY LEFT FOREARM, TWO VIEWS IMPRESSION: No radiographic evidence for advanced bony infection. No radiopaque soft tissue foreign bodies. Dictated by: Aamir Olea M.D. on 09/13/2016 at 13:39 CT UPPER EXTREMITY LT W CON IMPRESSION: 1. Skin thickening and subcutaneous edema consistent with cellulitis. 2. Subcutaneous fluid collection around elbow suspicious with subtle rim- enhancement, suspicious for developing abscess. Dictated by: Ward Moreno M.D. on 09/13/2016 at 20:57 Assessment & Plan Ms. Menjivar is a 75-year-old female with past medical history of A. fib not currently on anticoagulation, CVA, seizure disorder, eczema asthma and dementia admitted for sepsis secondary to abscess in her left upper extremity. Hospital day 2 1. Severe Sepsis. Present on admission. Ongoing - On admission patient Tachycardic, hyperthermic, hypotensive with lactic acidosis and leukocytosis secondary to probable source of left upper extremity abscess - CT showed left abscess area of olecranon. - Antibiotics to include clindamycin, ceftriaxone and vancomycin - Surgery consult, their expertise is appreciated. - Incision and drainage per surgery 2. Left upper extremity abscess. Present on admission. Ongoing - Patient seen in urgent care for left ulnar abscess which was lanced. Patient given ABX and DC'd which she was unable to fill. - ABX as in #1 - Surgery as in #1 3. Acute kidney injury. Present on admission. Resolved - Most likely secondary to hypotension, BP 86/47 on admit - Creatinine 1.57 on admission, trended down to 0.85 - Has received nephrotoxic antibiotics - IV fluids at 100 mL per hour - We will continue to monitor closely 4. Atrial fibrillation. Present on admission. Ongoing - Continued home metoprolol succinate 100 mg daily - Not currently on anticoagulation - Continued home aspirin Chronic issues 5. Seizure disorder. Present on admission. Ongoing - Continued home lamotrigine and Levitrictam 6. Hypertension. Present on admission. Ongoing - Held home amlodipine hydrochlorothiazide, furosemide, losartan secondary to hemodynamic state - We will consider restarting these post surgery 7. Hyperlipidemia. Present on admission. Ongoing - Continue home atorvastatin 40 mg daily Disposition: Patient remained inpatient status for at least one to 2 more days while we monitor surgical site and ensure no spread of infection. VTE Prophylaxis: Sub-Q Heparin (Unfractionated) Resuscitation Status: CPR: Attempt Resuscitation Attending Statement The patient was seen and examined together with Dr. Byrnes on 09/14/16 and I agree with the history, exam and plan as outlined in the note above. LUISA BYRNES DO Sep 14, 2016 13:32 Anand Fuentes MD Sep 14, 2016 22:14
[2016-09-14] MEDS ORDERED: Vancomycin Serum Trough XX ONE (14:30)
--- NOTE | 2016-09-14 15:25 | NUR ---
Social Work- Initial Assessment Data: See Initial Assessment. pt is a 75 year old female admitted 09/13/16 for cellulitis, sepsis per H&P. Pt underwent I&D today. Pt's insurance is [facility]. Pt's PCP is Arturo Bell DO through [facility]. SW met with pt regarding discharge plan, SW role explained. Pt alert and oriented x3. Pt resides alone in a senior apartment where she remains independent at [facility]. Pt reports her brother lives 3 miles away and her neighbor is a nurse who checks in on the pt occasionally. Pt has trouble recalling names secondary to a stroke. Pt uses a cane at base and does not drive. Pt has no history of HH or SNF, No LTC or VA benefits. Pt has no DPOA on file, states that she would want her brother Kamron Bowman to make medical decisions on her behalf. Pt denies any needs at discharge at this time. Pt to discharge home with brother to transport via POV. No anticipated discharge needs. SW will continue to follow Assessment: Pt who is independent at [facility]. Plan: Pt to discharge home with brother to transport via POV. No anticipated discharge needs. SW will continue to follow. JORGE Saldana Addendum: 09/14/16 at 1529 by AAMIR ZUÑIGA SS Amended: Links added.
--- NOTE | 2016-09-14 15:40 | NUR ---
HR morning dose of metoprolol withheld per MD bp parameters initially. pt trending with increasing HR, continued afib. Situation discussed with MD. instructed to give "morning" dose of metoprolol. will continue to monitor.
[2016-09-15] VITALS (10 sets, daily range): BP systolic 105–177; BP diastolic 40–85; PULSE 80–98; RESP 16–20; O2SAT 92–98
[2016-09-15] MEDS: Heparin 5,000 Unit/mL Inj SUBQ SCH ×3 (00:17→16:05)
[2016-09-15] MEDS: Sodium Chloride LOK Flush 10 mL Syringe IVFLUSH SCH ×3 (00:17→16:05)
[2016-09-15] MEDS: 0.9% Sodium Chloride 1,000 ML IV SCH (00:17)
[2016-09-15 04:40] LABS: BASOPHILS % (AUTO) 0.2 % (0-3); EOSINOPHILS % (AUTO) 3.3 % (0-5); MONOCYTES % (AUTO) 6.9 % (4-12); Mean Corpuscular Hemoglobin 31.2 pg (27.0-35.0); NEUTROPHILS % (AUTO) 69.5 % (40-74); Platelet Count 237 bil/L (150-400)
[2016-09-15 05:12] LABS: Magnesium 2.1 mg/dL (1.6-2.6)
--- NOTE | 2016-09-15 06:11 | OP ---
[address] [address] OPERATIVE REPORT PATIENT: TAMMIE DICK : 1940 MR#: [id number] ADMIT: 09/13/2016 JOB ID: [id number] DATE OF SURGERY: 09/14/2016 SURGEON: Steven Santiago MD VIDEO NEWS EDITOR: Jarocho Winters PA-C, and also Dr. Gutierrez, Resident 1. ANESTHESIA: General. PREOPERATIVE DIAGNOSIS(ES): Left forearm abscess. POSTOPERATIVE DIAGNOSIS(ES): Left forearm abscess. PRINCIPAL PROCEDURE: Incision and drainage of left forearm abscess. INDICATION FOR PROCEDURE: The patient is a 75-year-old female, with left forearm swelling. She underwent a limited I and D by Urgent Care two days ago. PRINCIPAL FINDING: A fairly large incision was made at the medial volar aspect of the forearm extending proximal above the elbow crease and the incision measured 15.5 cm. A counter incision at the lateral aspect of the forearm was made and this was only 5.5 cm. PROCEDURE COURSE: The patient was brought to the operating table and underwent general anesthesia. The patient had already received IV antibiotics. A time-out was performed. The patient's left upper extremity was then prepped and draped in the usual sterile fashion. Next, a time-out was performed. Next, along the previous I and D incision at the medial aspect of her ventral forearm, the incision was extended both distally and proximally, and a large amount of pus was evacuated. We had to extend the incision proximally to above the elbow crease because there was extension of the abscess and purulence. Blunt dissection was carried out using my finger. The abscess actually extended more laterally across the ventral forearm and, therefore, a counter incision was made at the lateral aspect of the forearm to allow for better drainage. Hemostasis was controlled using cautery. Pus that was obtained was sent for cultures. The medial incision measured a total of 15.5 cm and the lateral incision was 5.5 cm in length. Both wounds were irrigated out and packed with Kerlix at the end of the procedure. Sterile dressings were then placed over the wound. By the end of procedure, needle counts and sponge counts were correct. The patient was then extubated and taken to the recovery room in stable satisfactory condition.
--- NOTE | 2016-09-15 06:33 | NUR ---
left arm dressing left arm dressing is weeping at the superior aspect of the dressing (anterior antecubital) unwrapped coban, and rewrapped arm with abd and 2 kerlix wraps. re wrapped with coban. patient tolerated well. excellent cms to fingers. brisk cap refill. palpable radial pulse. elevated arm on 2 pillows. reassured.
[2016-09-15] MEDS: Vancomycin Dose per Pharmacist XX SCH (07:19)
--- NOTE | 2016-09-15 07:25 | PCM.PHAPRO ---
Progress Date of Service: Sep 15, 2016 Vancomycin dosing A/ Vancomycin trough came back low at 4.6 after a single dose of 1750mg vancomycin. Crcl has returned to a normal baseline. P/ Reload with 1750mg dose and then dose with 1500mg every 12 hours with the next trough due 09/16@1900. Pharmacy will continue to follow daily. Adán Grey Sep 15, 2016 07:25
[2016-09-15] MEDS ORDERED: Vancomycin Inj 1,750 MG in 0.9% Sodium Chloride 500 ML IV ONE (07:30)
[2016-09-15] MEDS: cefTRIAXone Inj 2,000 MG in Dextrose 5% Minibag Plus 50 ML IV SCH (07:35)
[2016-09-15] MEDS: levETIRAcetam 500 mg Tablet PO SCH ×2 (07:36→20:20)
[2016-09-15] MEDS: lamoTRIgine 100 mg Tablet PO SCH ×2 (07:37→20:20)
--- NOTE | 2016-09-15 07:49 | PCM.PNSURG ---
Subjective Visit Information: Reason for Visit Cellulitis,Sepsis Surgery/Surgery Date Post-Op Day # Date of Admission: Sep 13, 2016 at 15:12 Hospital Day # Subjective: sitting on commode, L arm wrapped by dressing, states it's better, can move it easier Objective Objective Awake Sitting on commode L arm dressing intact Vital Sign- Last 8 Hours Date Time Temp Pulse Resp B/P Pulse Ox O2 Delivery O2 Flow Rate FiO2 09/15/16 07:25 36.6 80 123/59 93 Room Air 09/15/16 05:58 93 09/15/16 04:19 37.0 92 16 121/58 93 Nasal Cannula 2.00 Intake and Output- Last 8 Hour 09/15/16 Cumulative From/Thru 07:00 09/13/16 12:52 - 09/15/16 06:20 Intake Total 1775 ml 6859 ml Output Total 700 ml 1800 ml Balance 1075 ml 5059 ml Intake Oral 600 ml 1600 ml IV Total 1175 ml 5259 ml Output Urine Total 700 ml 1600 ml Estimated Blood Loss 200 ml # Voids 4 8 Result Diagram: 09/15/16 0430 09/15/16 0430 Assessment & Plan Impression POD #1 s/p L forearm I & D Problems: Plan Will ask nursing to take dressing down and do dressing change today Wound Care Nurse to see tomorrow Abx per hospitalist service Await culture result VTE Prophylaxis: Sub-Q Heparin (Unfractionated) Resuscitation Status: CPR: Attempt Resuscitation Steven Santiago MD Sep 15, 2016 07:49
[2016-09-15] MEDS ORDERED: Potassium Chloride 20 mEq SR Tablet PO ONE (08:55)
--- NOTE | 2016-09-15 11:56 | NUR ---
left arm dressing With surgeon present and in to assess wound, dressing and packing removed. wound base beefy red. removed dressing with large amount sero-sanguineous drainage. medial and lateral incision re-packed with normal saline moistened kerlix and 4x4 gauze, respectively. abd pads applied and arm wrapped with kerlix. plan for wound care nurse to consult tomorrow. Addendum: 09/15/16 at 1200 by JULY MEDINA RN pt premedicated with oxycodone and tylenol per md orders. pt tolerated process well. cms continues to be intact.
--- NOTE | 2016-09-15 13:31 | PCM.PNMED ---
Subjective Date of Service Sep 15, 2016 Subjective Patient is a 75-year-old female with history of CVA, A. fib not currently on anticoagulation, seizure disorder, eczema, asthma and dementia admitted for sepsis secondary to abscess in her left upper extremity. Hospital day #2. No overnight events. Telemetry shows a fib/flutter overnight with heart rates in the 90s. Patient reports severe pain at the incision and drainage site. Patient states that she felt okay this morning but following manipulation of the dressing the pain is severe. Patient otherwise denies shortness of breath, fever, chills, nausea, emesis. She is tolerating PO. Exam Vital Signs Vital Sign - Last Date Time Temp Pulse Resp B/P Pulse Ox O2 Delivery O2 Flow Rate FiO2 09/15/16 07:25 36.6 80 123/59 93 Room Air 09/15/16 04:19 16 2.00 Intake and Output 09/14/16 09/14/16 09/15/16 Cumulative From/Thru 15:00 23:00 07:00 09/13/16 12:52 - 09/15/16 06:20 Intake Total 1350 ml 1101 ml 1775 ml 6859 ml Output Total 450 ml 350 ml 700 ml 1800 ml Balance 900 ml 751 ml 1075 ml 5059 ml Intake Oral 600 ml 600 ml 1600 ml IV Total 1350 ml 501 ml 1175 ml 5259 ml Output Urine Total 250 ml 350 ml 700 ml 1600 ml Estimated Blood Loss 200 ml 200 ml # Voids 4 8 Exam General: Supine in bed, moderate distress, well-developed, well-nourished, appropriately interactive HEENT: Normocephalic, atraumatic. External ears without defect. Cardiovascular: Irregularly irregular rhythm. No murmurs present Pulmonary: Clear to auscultation bilaterally with no crackles, wheezes, or rhonchi. Normal respiratory effort with no use of accessory muscles. Abdomen: Bowel tones present. Soft, nontender, nondistended. Extremities: Left upper extremity wrapped in dressing. The dressing was removed and reveals two surgical incisions - lateral forearm incision approximately 5cm in length and the medial incision approximately 18cm in length. Both incisions contained packing with serosanguineous drainage. Neurological: Cranial nerves grossly intact. Psychiatric: Normal mood and affect. Alert and oriented to person, place, and time. IVs and Medications Medications Reviewed: Medications were reviewed in detail Lab and Diagnostics Result Diagram: 09/15/1642909/15/16429 Microbiology Abscess culture pending, urine culture pending, blood culture pending X-Rays, CTs and MRIs . X-RAY LEFT FOREARM, TWO VIEWS IMPRESSION: No radiographic evidence for advanced bony infection. No radiopaque soft tissue foreign bodies. Dictated by: Aamir Olea M.D. on 09/13/2016 at 13:39 CT UPPER EXTREMITY LT W CON IMPRESSION: 1. Skin thickening and subcutaneous edema consistent with cellulitis. 2. Subcutaneous fluid collection around elbow suspicious with subtle rim- enhancement, suspicious for developing abscess. Dictated by: Ward Moreno M.D. on 09/13/2016 at 20:57 Assessment & Plan Patient is a 75-year-old female with history of CVA, A. fib not currently on anticoagulation, seizure disorder, eczema, asthma and dementia admitted for sepsis secondary to abscess in her left upper extremity. Hospital day #2. Post- op day #1. 1. Severe Sepsis. Present on admission. Resolved - On admission patient Tachycardic, hyperthermic, hypotensive with lactic acidosis and leukocytosis secondary to left upper extremity abscess - CT showed left abscess area of olecranon. - Antibiotics to include clindamycin, ceftriaxone and vancomycin - Culture and sensitivities pending 2. Left upper extremity abscess. Present on admission. Ongoing - Patient seen in urgent care for left ulnar abscess which was lanced. Patient prescribed antibiotics which she was unable to fill - s/p I&D. Post-op day #1 - Surgery following. Recommendations per Surgery appreciated - Wound care following. Recommendations per wound care appreciated - Antibiotics per above 3. Acute kidney injury. Present on admission. Resolved - Most likely secondary to hypotension, BP 86/47 on admit - Creatinine 1.57 on admission - Avoid nephrotoxins - Follow with BMP 4. Acute normocytic anemia. Not present on admission. Ongoing - Hgb 9.4 from 12.6 - Possibly multifactorial to surgery and hemodilution. No obvious source of bleeding - Follow with CBC 5. Atrial fibrillation, chronic. Present on admission. Ongoing - Continued home metoprolol succinate 100 mg daily - Not currently on anticoagulation - Continued home aspirin 6. Seizure disorder, chronic. Present on admission. Ongoing - Continued home lamotrigine and Keppra 7. Hypertension, chronic. Present on admission. Ongoing - Holding amlodipine, hydrochlorothiazide, furosemide, and losartan secondary to hemodynamic state. Will restart when BP begins to normalize 8. Hyperlipidemia, chronic. Present on admission. Ongoing - Continue home atorvastatin 40 mg daily Disposition: Pending hospital course and General Surgery recommendations. Patient currently receiving IV antibiotics with culture and sensitivities pending. VTE Prophylaxis: Sub-Q Heparin (Unfractionated) VTE Mechanical Devices: Intermittant Pneumatic CD Resuscitation Status: CPR: Attempt Resuscitation Attending Statement patient was seen independently and case discussed with Dr Chavez,I agree with the assessment and plan as outlined above Adryan Chavez DO Sep 15, 2016 09:45 Anand Fuentes MD Sep 15, 2016 16:18
--- NOTE | 2016-09-15 14:05 | NUR ---
KERI signed. Tiesha Leonard LARRY OPERATOR
[2016-09-15] MEDS ORDERED: Polyethylene Glycol (PEG) 17 Gm Powder PO PRN (15:15)
[2016-09-15] MEDS ORDERED: Alum-Mag Hydrox-Simeth 30 mL Suspension PO PRN (15:15)
[2016-09-15] MEDS ORDERED: Ondansetron 2 mg/mL 2 mL Inj IVPUSH PRN (15:15)
--- NOTE | 2016-09-15 18:33 | NUR ---
Pain and drowsy P: Pt. C/O L arm pain, requested pain relievers. I: PRN Roxicodone 5 mg PO given. Pt. reported Roxicodone was effective (pain dropped to 2/10) but made her sleepy and drowsy. E: Pt. appeared drowsy and forgetful. Reminded pt. to use call light for assistance. She transferred from bed to BSC with 1p assist. S: Will cut PRN Roxicodone dose in half (2.5 mg) should pt. ask for pain reliever in the future.
[2016-09-15] MEDS: Vancomycin Inj 1,500 MG in 0.9% Sodium Chloride 500 ML IV SCH (18:50)
[2016-09-16] VITALS (9 sets, daily range): BP systolic 138–169; BP diastolic 46–88; PULSE 91–130; RESP 16–20; O2SAT 93–97
[2016-09-16] MEDS: Heparin 5,000 Unit/mL Inj SUBQ SCH ×4 (00:04→23:39)
[2016-09-16] MEDS: Sodium Chloride LOK Flush 10 mL Syringe IVFLUSH SCH ×4 (00:06→23:37)
[2016-09-16 04:22] LABS: BASOPHILS % (AUTO) 0.2 % (0-3); MONOCYTES % (AUTO) 8.9 % (4-12); Mean Corpuscular Hemoglobin 30.9 pg (27.0-35.0); Mean Corpuscular Volume 95.7 fL (81-100); Platelet Count 283 bil/L (150-400)
[2016-09-16 04:51] LABS: Magnesium 1.9 mg/dL (1.6-2.6)
--- NOTE | 2016-09-16 05:41 | NUR ---
activity / sleep patient awake most of the night. frequent bsc trips. readjusting of pillows for left arm. and the blankets. patient appropriate with cares, but anxious.reassured. heart rate 80-90 but increases to the 120-130 atrial fib with activity medicated for pain to left arm x1 as documented (oxycodone 2.5 mg). dressing draining moderate serous fluid, reinforced with kerlix and chucks will cont to provide supportive care
[2016-09-16] MEDS: Vancomycin Dose per Pharmacist XX SCH (08:30)
[2016-09-16] MEDS: cefTRIAXone Inj 2,000 MG in Dextrose 5% Minibag Plus 50 ML IV SCH (10:26)
[2016-09-16] MEDS: lamoTRIgine 100 mg Tablet PO SCH ×2 (10:27→19:45)
[2016-09-16] MEDS: levETIRAcetam 500 mg Tablet PO SCH ×2 (10:28→19:45)
--- NOTE | 2016-09-16 13:23 | NUR ---
Wound Care Patient seen for wound care evaluation to left elbow incisions this date. Patient s/p I&D of MRSA abscess on 09/15/16. Patient reports severe pain with previous attempts to remove packing. Moistened packing with saline and able to remove with minimal discomfort. Wounds noted with moderate brown drainage and no odor present. Wound beds appear dry with muscle exposed in base of both wounds. Medial incision measures 13cm L x 4cm W x 3.5cm D with approx 1cm undermining around. Muscle red and healthy at base of wound. Subcutaneous and adipose tissue appears dry to edges. Cleaned with NS. Packed with wound gel and 2" conform. Lateral incision measures 4cmL x 1.7cm W x 1.3cm D with 0.2cm undermining around. Muscle in base of wound bed red and healthy. Subcutaneous tissue and adipose appears dry at wound edges. Medial edge with some rolling noted. Packed with wound gel and 2" conform. Both wounds covered with ABD pad x 2. Secured with Kerlix x 2 and plastic tape. Left arm elevated on pillows per patient request and for comfort following wound care. Patient with minimal overall reports of pain during treatment. Nursing to change outer dressing as needed for soiling. Wound care to follow as needed for dressing changes.
[2016-09-16] MEDS: Vancomycin Inj 1,500 MG in 0.9% Sodium Chloride 500 ML IV SCH (13:45)
--- NOTE | 2016-09-16 14:48 | PCM.PNSURG ---
Subjective Date of Service: Sep 16, 2016 Date of Service: Sep 16, 2016 Visit Information: Reason for Visit Cellulitis,Sepsis Surgery/Surgery Date Post-Op Day # Date of Admission: Sep 13, 2016 at 15:12 Hospital Day # Subjective: Patient lying in bed with left arm wrapped. Her pain is well controlled. She would like to ambulate, but states she is "strapped down." She denies dizziness , chest pain, abdominal pain, nausea, vomiting, constipation, diarrhea. Reports mild shortness of breath. Objective Objective General: Supine in bed, No acute distress, well-developed, obese, well-nourished , appropriately interactive HEENT: Normocephalic, atraumatic. External ears without defect. Cardiovascular: Irregularly irregular rhythm. No murmurs present Pulmonary: Clear to auscultation bilaterally with no crackles, wheezes, or rhonchi. Normal respiratory effort with no use of accessory muscles. Abdomen: Bowel tones present. Soft, nontender, nondistended. Extremities: Left upper extremity wrapped in dressing. The dressing was removed and reveals two surgical incisions - lateral forearm incision approximately 5cm in length and the medial incision approximately 18cm in length. Both incisions contained packing with serosanguineous drainage. Neurological: Cranial nerves grossly intact. Psychiatric: Normal mood and affect. Alert and oriented to person, place, and time. Vital Sign- Last 8 Hours Date Time Temp Pulse Resp B/P Pulse Ox O2 Delivery O2 Flow Rate FiO2 09/16/16 12:32 37.2 94 20 144/76 94 Room Air 09/16/16 11:12 97 09/16/16 10:14 Supplement Oxygen 09/16/16 10:14 37.3 114 18 164/83 94 Nasal Cannula 1.00 Intake and Output- Last 8 Hour 09/16/16 Cumulative From/Thru 07:00 09/13/16 12:52 - 09/16/16 06:39 Intake Total 2000 ml 61452 ml Output Total 650 ml 3400 ml Balance 1350 ml 6805 ml Intake Oral 1500 ml 3456 ml IV Total 500 ml 6749 ml Output Urine Total 650 ml 3200 ml Estimated Blood Loss 200 ml # Voids 7 15 # Bowel Movements 0 0 Result Diagram: 09/16/16 0400 09/16/16 0400 Assessment & Plan Impression Left forearm abscess I&D status post Day # 1 MRSA positive. Problems: Plan Continue standard I&D wound care. Wound Care following. Continue Abx for MRSA per hospitalist. Will most likely require 10 days Abx as outpatient with either linezolid, doxycycline, or clindamycin. She has an allergy to trimethoprim/sulf. She will require regular wound care visits as outpatient. Continue full diet. Encourage ambulation. Continue incentive spirometry. VTE Prophylaxis: Sub-Q Heparin (Unfractionated) Resuscitation Status: CPR: Attempt Resuscitation BRANDON AKHTAR DO Sep 16, 2016 14:43
--- NOTE | 2016-09-16 15:18 | PCM.PNMED ---
Subjective Date of Service Sep 16, 2016 Subjective Patient is a 75-year-old female with history of CVA, A. fib not currently on anticoagulation, seizure disorder, eczema, asthma and dementia admitted for sepsis secondary to abscess in her left upper extremity. Hospital day #3. Overnight: A flutter with IVCD in the 90s throughout the night. Heart rate will elevate to 130s with activity. Today: Patient awake and alert sitting up in bed and taking appropriately. States she is no specific complaints, does not state she has left arm pain. Is generally in good spirits. Exam Vital Signs Vital Sign - Last Date Time Temp Pulse Resp B/P Pulse Ox O2 Delivery O2 Flow Rate FiO2 09/16/16 12:32 37.2 94 20 144/76 94 Room Air 09/16/16 10:14 1.00 Intake and Output 09/15/16 09/15/16 09/16/16 Cumulative From/Thru 15:00 23:00 07:00 09/13/16 12:52 - 09/16/16 06:39 Intake Total 1346 ml 2000 ml 41809 ml Output Total 950 ml 650 ml 3400 ml Balance 396 ml 1350 ml 6805 ml Intake Oral 356 ml 1500 ml 3456 ml IV Total 990 ml 500 ml 6749 ml Output Urine Total 950 ml 650 ml 3200 ml Estimated Blood Loss 200 ml # Voids 7 15 # Bowel Movements 0 0 Exam General: Obese female Awake and alert laying in hospital bed in no acute distress, well-developed, well-nourished, appropriately interactive HEENT: Normocephalic, atraumatic. External ears without defect. Pupils equal, round, and reactive to light and accommodation. Neck: Supple with full range of motion. Cardiovascular: Tachycardic rate with irregularly irregular rhythm. No murmurs appreciated Pulmonary: Clear to auscultation bilaterally with no crackles, wheezes, or rhonchi. Normal respiratory effort with no use of accessory muscles. Abdomen: Bowel tones present. Soft, nontender, nondistended. Extremities: Left upper extremity wrapped in bandages, weeping through bandages. Good distal pulse Neurological: Cranial nerves grossly intact. Psychiatric: Normal mood and affect. Alert and oriented to person, place, and time. IVs and Medications Medications Reviewed: Medications were reviewed in detail Lab and Diagnostics Result Diagram: 09/16/160 4/17/17 0400 Microbiology Abscess culture showed MRSA sensitive to vancomycin Urine showed no growth final Blood culture no growth at 2 days 2 X-Rays, CTs and MRIs . X-RAY LEFT FOREARM, TWO VIEWS IMPRESSION: No radiographic evidence for advanced bony infection. No radiopaque soft tissue foreign bodies. Dictated by: Aamir Olea M.D. on 09/13/2016 at 13:39 CT UPPER EXTREMITY LT W CON IMPRESSION: 1. Skin thickening and subcutaneous edema consistent with cellulitis. 2. Subcutaneous fluid collection around elbow suspicious with subtle rim- enhancement, suspicious for developing abscess. Dictated by: Ward Moreno M.D. on 09/13/2016 at 20:57 Assessment & Plan Patient is a 75-year-old female with history of CVA, A. fib not currently on anticoagulation, seizure disorder, eczema, asthma and dementia admitted for sepsis secondary to abscess in her left upper extremity. Hospital day #3. Post- op day #2. 1. Severe Sepsis. Present on admission. Resolved - On admission patient Tachycardic, hyperthermic, hypotensive with lactic acidosis and leukocytosis secondary to left upper extremity abscess - CT showed left abscess area of olecranon. - Antibiotics to include ceftriaxone and vancomycin - Culture and sensitivities pending - Infectious disease following we appreciate their recommendations 2. Left upper extremity abscess. Present on admission. Ongoing - Patient seen in urgent care for left ulnar abscess which was lanced. Patient prescribed antibiotics which she was unable to fill - s/p I&D. Post-op day #2 - Surgery following. Recommendations per Surgery appreciated - Wound care following. Recommendations per wound care appreciated - Antibiotics as in #1 3. Acute kidney injury. Present on admission. Resolved - Most likely secondary to hypotension, BP 86/47 on admit - Creatinine 1.57 on admission, resolved 0.57 today - Avoid nephrotoxins - Follow with BMP 4. Acute normocytic anemia. Not present on admission. Improving - Hgb matthias of 9.4 from 12.6 peak. Currently trending up 10.1 today - Possibly multifactorial to surgery and hemodilution. No obvious source of bleeding - Follow with CBC 5. Atrial fibrillation, chronic. Present on admission. Ongoing - Continued home metoprolol succinate 100 mg daily - Not currently on anticoagulation - Continued home aspirin 6. Seizure disorder, chronic. Present on admission. Ongoing - Continued home lamotrigine and Keppra 7. Hypertension, chronic. Present on admission. Ongoing - Held home amlodipine, hydrochlorothiazide, furosemide, and losartan secondary to hemodynamic/hypotensive state. - Blood pressures have rebounded to hypertensive in the last 24 hours - Restart furosemide today as patient is now high. Hypertensive with low urine output - Restart home amlodipine 8. Hyperlipidemia, chronic. Present on admission. Ongoing - Continue home atorvastatin 40 mg daily Disposition: Pending hospital course and General Surgery recommendations. Patient currently receiving IV antibiotics with infectious disease following, awaiting further recommendations for discharge. Anticipate discharge in the next day to 2 Pain Evaluation: Adequate Pain Control VTE Prophylaxis: Sub-Q Heparin (Unfractionated) VTE Mechanical Devices: Intermittant Pneumatic CD Resuscitation Status: CPR: Attempt Resuscitation Attending Statement The patient was seen and examined together with Dr. Byrnes on 09/16/2016 and I agree with the history, exam and plan as outlined in the note above. . LUISA BYRNES DO Sep 16, 2016 15:18 Adán Zurita MD Sep 16, 2016 17:38
--- NOTE | 2016-09-16 15:42 | NUR ---
Multidisciplinary Communication/Wound Care 1210 - Noted that her 0730 Vancomycin IV had not arrived after her Rocephin IV had finished being administered. Spoke with Pharmacist Kieran Lagos about this and he said he would look into getting it. It arrived and was given at 1345. 1330 - She started complaining of shortness of breath and "chest pressure." Her O2 via nasal cannula was turned up from 2L to 4L and she was raised in the bed. 1340 - Checked her telemetry which was A-fib 94. Spoke with Dr. Byrnes about this in person and he said that she had anxiety and to give her a few minutes to see if it disappeared. She stopped complaining of shortness of breath and chest pressure shortly after. Wound Care - Her left elbow dressing has been changed as least three times today by this primary RN (ABD and bulk wrap) and the Wound Care Nurse (ABD, bulk wrap, and wound packing) due to moderate-large amount of sero-sanguineous drainage. MDs are aware. Care continues.
--- NOTE | 2016-09-16 16:13 | NUR ---
Scheduled hospital follow up appointment at residency clinic. September 27 820AM check in for a 830AM with Dr. Britt Updated CANCER REGISTRY COORDINATOR
--- NOTE | 2016-09-16 16:21 | NUR ---
Social Work Note: Readiness for Discharge Data& Assessment: SW met with pt at bedside to check in and assess for any unmet needs. Per MD pt is getting closer to being medically ready for discharge. Pt confirmed her PCP is Dhaval Marquis MD. Pt confirmed that her daughter will be transporting her home when medically ready. Pt feels she is ambulating at baseline. Pt denies any other needs at this time. SW to continue to follow if any needs arise. Plan: Anticipated discharge home via POV when medically ready. Pt denies any other needs at this time. SW to continue to follow if any needs arise. JORGE Olivier
[2016-09-16] MEDS ORDERED: Vancomycin Serum Trough XX ONE (19:00)
[2016-09-16] MEDS: Mupirocin 2% 22 Gm Ointment NASAL SCH (19:45)
--- NOTE | 2016-09-16 22:50 | CONS ---
[address] [address] CONSULTATION REPORT PATIENT: TAMMIE DICK : 1940 MR#: [id number] ADMIT: 09/13/2016 JOB ID: [id number] DATE OF SERVICE: 09/16/[address] Jun Byrnes for this consult. REASON FOR CONSULTATION: Left arm MRSA infection in an elderly woman. HISTORY OF PRESENT ILLNESS: The patient is a 75-year-old woman with multiple chronic medical problems including dementia, organic heart disease and COPD. She reportedly lives more or less by herself, however, in an apartment near [facility]. The patient was initially seen back on September 12 when she complained of left arm abscess. This was drained in urgent care and she was given an injection of ceftriaxone with a clindamycin prescription. The next day, however, the patient presented with worsening left arm cellulitis and inflammation. She had not been able to fill the clindamycin prescription and was complaining of pain, confusion, swelling of the left arm, and there were also notes regarding subjective fever. Upon re-presentation to urgent care on September 13 she was sent to the emergency department and subsequently admitted because of the extent of this infection. Since that time, she has undergone additional debridement by Dr. Bebeto Santiago, who found that there was a considerable amount of pus and he was forced to make an incision 15 cm long along the medial aspect of the left upper extremity and 5 cm along the lateral. Both wounds were irrigated and extensively packed. Following this, the patient was treated with ceftriaxone and vancomycin over the past couple of days and she has improved somewhat. This afternoon, the patient says she is feeling better. No fevers, no chills, but still with some obvious pain of course due to the extent of her wounds, which are now packed. She is short of breath, which is a baseline complaint, and has no rigors, sweats, nausea, vomiting, diarrhea or overt constitutional symptoms. PAST MEDICAL HISTORY: 1. Dementia. 2. CVA. 3. Congestive heart failure. 4. Status post resected brain tumor. 5. COPD. SOCIAL HISTORY: The patient is a nonsmoker, nondrinker who lives by herself in an apartment. Gets help from relatives and neighbors. She does not use IV drugs. FAMILY HISTORY: Negative for tuberculosis in first and second-degree relatives. REVIEW OF SYSTEMS: No significant headache, visual change, sore throat, cough. No significant sore throat, but she does have a nonproductive cough and chronically some shortness of breath. No chest pain. No nausea, vomiting, diarrhea. No dysuria and no pain in other joints, though she obviously has considerable pain in her left arm. Remainder of the review of systems negative. PHYSICAL EXAMINATION: Reveals an afebrile woman. Note that she has been afebrile throughout this ordeal, never going above 38 degrees, currently 37.2. Pulse 94, respiratory rate 20, blood pressure 144/76, saturating well on room air. The patient is alert, conversational, and knows where she is this afternoon. Her head is without evidence of trauma. Eyes without conjunctivitis. Oral cavity without thrush or pharyngitis. Nose appears normal, as do the ears. Neck without adenopathy or JVD. Lungs: A few wheezes and crackles are heard at the bases but little else. Cardiac tones regular rate and rhythm without overt murmur this afternoon. Abdomen: Soft, nontender. She does not have a Bo catheter. No suprapubic tenderness is noted. The lower extremities are without significant cellulitis or edema. There is no venous stasis changes. No skin breakdown. The right upper extremity appears relatively benign. There is no synovitis anywhere, including the upper extremities, though the left arm has a large incision medial along the longitudinal aspect of the forearm, there is a long about 15 cm incision and on the lateral aspect of the forearm about a 5 cm incision. These were examined by the resident on the team and were found to be free of purulence, but there was considerable erythema. Serosanguineous discharge was also noted. There was no foul odor. The patient does have full use of her left hand. Neurologically, the patient is grossly intact. She can move everything and has no obvious sensory deficits. LABORATORIES: Include white count which has been bouncing around 15,000; now down to 9900 today. This is her first normal white count. The diff is also now completely normal. Creatinine is 0.57. ALT and AST are slightly increased. ALT is up to 43, alk phos 222. Procalcitonin 0.46, albumin 2.7. Urinalysis with 6-10 white cells. Vanco level is . The abscess culture is growing MRSA. This MRSA has good MICs. Clinda is very susceptible. Linezolid susceptible. Bactrim susceptible. Vanco DOMINGO of 1. The upper extremity CT scan done preop shows severe cellulitis with an abscess noted which was subsequently drained. IMPRESSION: This elderly female presents with worsening left forearm abscess which has been appropriately managed surgically and she is now receiving vanco and ceftriaxone. In terms of literature regarding the optimal management of the severe methicillin-resistant Staphylococcus aureus soft tissue infections are many articles that compare either vanco to dapto or dapto to linezolid or even occasionally linezolid to dapto. Out of these agents, probably linezolid is the superior choice unless there are contraindications. It has never been shown to be the inferior agent in any [id number] study, and in many of these studies it actually appears to be the best agent. There is often drug interactions which preclude its use, but here I think we are reasonably safe using this option. Another big advantages is that linezolid is 100% orally absorbed and we have no reason to give it IV. RECOMMENDATIONS: 1. Discontinue vanco and ceftriaxone. 2. Will switch to oral linezolid 600 p.o. b.i.d. with intention of completing about a seven day course on top of which she has already received with vanco here in the hospital. 3. Basal Bactroban for 10 days b.i.d. would be reasonable. 4. Will follow this patient with you. Thank you very much for this interesting consult.
[2016-09-17] MEDS ORDERED: Vancomycin Inj 1,500 MG in 0.9% Sodium Chloride 500 ML IV SCH (01:30)
[2016-09-17 02:49] VITALS: BP 173/89; PULSE 93; RESP 20; O2SAT 94
[2016-09-17 05:11] LABS: Mean Corpuscular Hemoglobin 31.3 pg (27.0-35.0); Mean Corpuscular Volume 93.7 fL (81-100); Platelet Count 305 bil/L (150-400)
[2016-09-17 05:25] LABS: BASOPHILS % (AUTO) 0 % (0-3); EOSINOPHILS % (AUTO) 9 % (0-5); MONOCYTES % (AUTO) 10 % (4-12); NEUTROPHILS % (AUTO) 53 % (40-74)
--- NOTE | 2016-09-17 05:34 | NUR ---
pain/incision States pain to left arm is relieved with use of oxycodone. Incision is draining sero sanguinous fluid and outer layers pof ABDs and Kerlix have been changed twice this shift. She is keeping it elevated on pillows. Sats are in mid-90's on 3 liters nasal cannula.
[2016-09-17 08:30] VITALS: BP 151/80; PULSE 104; RESP 18; O2SAT 97
[2016-09-17] MEDS: Sodium Chloride LOK Flush 10 mL Syringe IVFLUSH SCH ×2 (08:54→16:36)
[2016-09-17] MEDS: lamoTRIgine 100 mg Tablet PO SCH (08:57)
[2016-09-17] MEDS: levETIRAcetam 500 mg Tablet PO SCH (08:58)
[2016-09-17] MEDS: Mupirocin 2% 22 Gm Ointment NASAL SCH (08:59)
[2016-09-17] MEDS: Heparin 5,000 Unit/mL Inj SUBQ SCH ×2 (09:04→16:36)
[2016-09-17] MEDS ORDERED: MUPI1OIN5 NASAL (10:09)
[2016-09-17] MEDS ORDERED: LINE600T2 PO (10:09)
--- NOTE | 2016-09-17 11:56 | NUR ---
Gave access to [employer] and faxed [employer]. Called and left message for Melina Medeiros CM at [place] and let her know I would be needing authorization for transfer to [facility] for today. Addendum: 09/17/16 at 1431 by ISHMAEL FOSTER CM Patient approved by Melina Medeiros CM at [place] to transfer to [facility] today.
--- NOTE | 2016-09-17 12:16 | NUR ---
Social Work- Readiness for Discharge Data: EMR reviewed. Pt is on day 4 of hospitalization for cellulitis/sepsis per H&P. Pt is nearing discharge. PT evaluated pt today and is recommending SNF. SW spoke with pt and son J Carlos at bedside regarding this recommendation. SNF CHOICE LIST PROVIDED. Pt chose [facility] as first choice. [facility] who does not accept pt's insurance. Pt second choice is [facility], who is agreeable to accepting pt with MD Barton to follow. SW updated pt at bedside. Pt agreeable to [facility] placement for SNF. UR Specialist is working on obtaining authorization. Paperwork in chart. PASRR in folder. SW will continue to follow. Assessment: Pt who would benefit from SNF. Plan: Pt to discharge to [facility] when medically stable for discharge with MD Barton to follow. Ins Authorization is pending. Paperwork in chart. PASRR in folder. SW will continue to follow. JORGE Saldana Addendum: 09/17/16 at 1503 by AAMIR ZUÑIGA SS Correction- J Carlos is pt's brother. Prior note stated J Carlos is pt's son. This is incorrect.
[2016-09-17 12:31] VITALS: BP 153/76; PULSE 94; RESP 18; O2SAT 94
[2016-09-17] MEDS ORDERED: Vancomycin Serum Trough XX ONE (13:00)
--- NOTE | 2016-09-17 13:01 | PCM.DIMED ---
LUISA BYRNES DO 09/17/16 1012: Discharge Instructions Date of Service Sep 17, 2016 Dates of Hospitalization Sep 13, 2016 at 15:12 Discharge Diagnosis Discharge Diagnosis . 1. Severe Sepsis 2. Left upper extremity abscess 3. Acute kidney injury 4. Acute normocytic anemia 5. Atrial fibrillation 6. Seizure disorder 7. Hypertension 8. Hyperlipidemia Medication Instructions Please continue to take all of your regular prescribed medications. In addition you have been prescribed oral Linezolid by our infectious disease team. You are to take 600 mg of this medication by mouth 2 times a day once in the morning once at night for the next 6 days. That means today 09/17/2016 at 8:30 PM you are to take 1 tablet of this medication and then again tomorrow 2016 E take 2 tablets of this medicine the day until you run out. He is also been given a prescription for nasal Bactroban, please use this medicine 2 times a day and your nasal cavities for the next 10 days. Diet Heart Healthy Activity Limited until seen by PCP Call your provider Fever or Chills, Shortness of breath, Bleeding, Chest pain, Vomitting, Excessive diarrhea, Weakness (unilateral) Patient Instructions DC to [facility] Follow-up Provider: [facility] Follow-up with PCP in: 1 week Adán Zurita MD 09/18/16 0719: Discharge Instructions Attending's Statement The patient was seen and examined together with Dr. Byrnes on 09/17/2016 and I agree with the history, exam and plan as outlined in the note above. . LUISA BYRNES DO Sep 17, 2016 10:12 Adán Zurita MD Sep 18, 2016 07:19
--- NOTE | 2016-09-17 13:24 | NUR ---
Evaluation completed. Please go to "Notes" then click on "Assessments and Notes" (bottom left corner of screen). Then select appropriate discipline tab on top of screen.
--- NOTE | 2016-09-17 14:42 | PROG NOTE ---
[address] [address] PROGRESS NOTE PATIENT: TAMMIE DICK : 1940 MR#: [id number] ADMIT: 09/13/2016 JOB ID: [id number] DATE: 09/17/2016 REASON FOR FOLLOWUP: Severe MRSA infection, left arm. INTERVAL HISTORY: Overnight, the patient has done relatively well. She notes that she has had some subjective chills but no fever. She has had no new cough, shortness of breath, nausea, vomiting, diarrhea, or other systemic symptom. She notices minimal pain in her left arm after the most recent dressing change and her main complaint is regarding hematoma which developed on her dorsal left hand after a blood draw. PHYSICAL EXAMINATION: Reveals an afebrile woman, temp 36.9, pulse 94, respiratory rate 18, blood pressure 153/76, saturating well on 3 L. Patient's mental status seems relatively clear. Lungs are clear to auscultation. Cardiac tones with systolic murmur as heard before. Abdomen benign. Left arm is heavily dressed, and we plan to see it later today with Wound Management at the regularly scheduled dressing change time. LABORATORIES: Include white count now down to 10,000, 9% eosinophils, likely drug related. Creatinine 0.56. Alk phos 236. Procalcitonin dropping from 1.38, now down to 0.28. Micro includes the positive culture for MRSA which was linezolid susceptible, otherwise negative. IMPRESSION: Extensive left forearm abscess, now status post debridement, and receiving oral antibiotics utilizing linezolid. RECOMMENDATIONS: 1. I would continue with linezolid 100 b.i.d. with a plan for a seven-day course starting from yesterday, so through September 23. Bactroban in nose for 10 days is also a reasonable idea. 2. We will be checking on the wound later in the day with Hilario Lobo of wound management and then I will see the patient again on , September 19.
[2016-09-17 15:13] VITALS: PULSE 101
--- NOTE | 2016-09-17 15:13 | PCM.DC.MED ---
Discharge Summary Date of Service Sep 17, 2016 Dates of Hospitalization Date of Hospital Admission Sep 13, 2016 at 15:12 Date of Discharge: Sep 17, 2016 Providers: Admitting Physician: Jayashree Wharton MD Primary Care Physician: Arturo Bell DO Attending Physician: Jayashree Wharton MD Diagnosis at Time of Discharge Diagnosis at Time of Discharge 1. Severe Sepsis 2. Left upper extremity abscess 3. Acute kidney injury 4. Acute normocytic anemia 5. Atrial fibrillation 6. Seizure disorder, 7. Hypertension 8. Hyperlipidemia Consultations Dr. Ben M.D., general surgery Dr. Jack M.D., general surgery Dr. Kurt M.D., infectious disease Procedures XRay, CTs & MRIs . X-RAY LEFT FOREARM, TWO VIEWS IMPRESSION: No radiographic evidence for advanced bony infection. No radiopaque soft tissue foreign bodies. Dictated by: Aamir Olea M.D. on 09/13/2016 at 13:39 CT UPPER EXTREMITY LT W CON IMPRESSION: 1. Skin thickening and subcutaneous edema consistent with cellulitis. 2. Subcutaneous fluid collection around elbow suspicious with subtle rim- enhancement, suspicious for developing abscess. Dictated by: Ward Moreno M.D. on 09/13/2016 at 20:57 Invasive Procedures . PRINCIPAL PROCEDURE: Incision and drainage of left forearm abscess. PROCEDURE COURSE: The patient was brought to the operating table and underwent general anesthesia. The patient had already received IV antibiotics. A time-out was performed. The patient's left upper extremity was then prepped and draped in the usual sterile fashion. Next, a time-out was performed. Next, along the previous I and D incision at the medial aspect of her ventral forearm, the incision was extended both distally and proximally, and a large amount of pus was evacuated. We had to extend the incision proximally to above the elbow crease because there was extension of the abscess and purulence. Blunt dissection was carried out using my finger. The abscess actually extended more laterally across the ventral forearm and, therefore, a counter incision was made at the lateral aspect of the forearm to allow for better drainage. Hemostasis was controlled using cautery. Pus that was obtained was sent for cultures. The medial incision measured a total of 15.5 cm and the lateral incision was 5.5 cm in length. Both wounds were irrigated out and packed with Kerlix at the end of the procedure. Sterile dressings were then placed over the wound. By the end of procedure, needle counts and sponge counts were correct. The patient was then extubated and taken to the recovery room in stable satisfactory condition. Steven Santiago MD 09/14/16 1126 Brief History History and physical per Dr. Wharton 09/14/2016 cc: left arm cellulitis/abscess worse HISTORY was OBTAINED FROM PATIENT / MEDITECH NOTES History of present illness 75-year-old female, w/ chronic diffuse eczema, went to for Left forearmproximal ulnar abscess lanced w/ rocephine 2 days ago, unable to fill clindamycin script, presented to urgent care for follow up w/ worsened diffuse forearm cellulitis and sent to ER today. Per ER notes and floor RN, she is confused. not much pain, no paresthesia, able to use remote control w/ affected arm. does not remember prior boil hx. no trauma hx. mild diffuse excoriations throughout body due to eczema. In the ER, low temperature, low blood pressure, vancomycin and Rocephin, 1 L normal saline Review of Systems - none of the following - F/C/sick contact / wt change/ JACK / lightheaded / dizziness / sob / cough / cp / acid reflux / n/v/diarrhea / bleeding/bruising / leg swelling / change in voiding / yeast infections / rash ambulates Hospital Course 1. Severe Sepsis - On admission patient Tachycardic, hyperthermic, hypotensive with lactic acidosis and leukocytosis secondary to left upper extremity abscess - CT showed left abscess area of olecranon. - Infectious disease following we appreciate their recommendations - Antibiotics to include ceftriaxone and vancomycin, discharged on Linezolid - Culture of abscess showed MRSA sensitive to the nasal 2. Left upper extremity abscess - Patient seen in urgent care for left ulnar abscess which was lanced. Patient prescribed antibiotics which she was unable to fill - Surgery following. Recommendations per Surgery appreciated - Incision and drainage per surgery - Wound care following. Recommendations per wound care appreciated - Antibiotics as in #1 3. Acute kidney injury - Most likely secondary to hypotension, BP 86/47 on admit - Creatinine 1.57 on admission, resolved 0.57 - Avoided nephrotoxins - Followed with daily CMP 4. Acute normocytic anemia - Hgb matthias of 9.4 from 12.6 peak. Currently trending up 10.9 at time of discharge - Possibly multifactorial to surgery and hemodilution. No obvious source of bleeding - Followed with CBC 5. Atrial fibrillation - Continued home metoprolol succinate 100 mg daily - Not currently on anticoagulation as outpatient - Continued home aspirin 6. Seizure disorder - Continued home lamotrigine and Keppra 7. Hypertension - Initially held home amlodipine, hydrochlorothiazide, furosemide, and losartan secondary to hemodynamic/hypotensive state - BP meds restarted prior to discharge 8. Hyperlipidemia - Continued home atorvastatin 40 mg daily 9. Transaminitis. -AST within normal limits throughout hospital admission, ALT 42 on admit trended down to normal limits then trended back up. -Unknown cause Exam Vital Signs (Last) Date Time Temp Pulse Resp B/P Pulse Ox O2 Delivery O2 Flow Rate FiO2 09/17/16 12:31 36.9 94 18 153/76 94 Nasal Cannula 3.00 Exam General: Obese female Awake and alert sitting up in bedside chair eating breakfast in no apparent distress appropriately interactive HEENT: Normocephalic, atraumatic. External ears without defect. Pupils equal, round, and reactive to light and accommodation. Neck: Supple with full range of motion. Cardiovascular: Tachycardic rate with irregularly irregular rhythm. No murmurs appreciated Pulmonary: Clear to auscultation bilaterally with no crackles, wheezes, or rhonchi. Normal respiratory effort with no use of accessory muscles. Abdomen: Soft, nontender, nondistended. Extremities: Left upper extremity wrapped in bandages, slight weeping through bandages. Good distal pulse Neurological: Cranial nerves grossly intact. Psychiatric: Normal mood and affect. Test 09/13/16 13:57 09/14/16 02:30 09/14/16 04:00 09/14/16 15:40 Prothrombin Time 12.3sec (8.1-12.5) Prothromb Time International Ratio 1.15ratio Troponin T < 0.010ug/L (0.0-0.011) Urine Color Yellow (YELLOW) Urine Appearance Hazy (CLEAR,HAZY) Urine pH 6.0 (5.0-8.0) Urine Specific [place] 1.030 (1.003-1.035) Urine Protein Tracemg/dL (NEG,TRACE) Urine Glucose (UA) Negativemg/dL (NEGATIVE) Urine Ketones Negativemg/dL (NEGATIVE) Urine Occult Blood Trace (NEGATIVE) Urine Nitrite Negative (NEGATIVE) Urine Bilirubin Negative (NEGATIVE) Urine Urobilinogen Normalmg/dL (NORMAL) Urine Leukocyte Esterase Trace (NEGATIVE) Urine RBC 0-2/hpf (0-2) Urine WBC 6-10/hpf (0-5) Urine Epithelial Cells Moderate/hpf (NONE-MOD) Urine Crystals None seen (NONE SEEN) Urine Bacteria Few/hpf (NONE-FEW) Urine Hyaline Casts None/lpf (NONE) Urine Granular Casts None seen (NONE SEEN) Urine Waxy Casts None seen (NONE SEEN) Urine Red Blood Cell Casts None seen (NONE SEEN) Urine White Blood Cell Casts None seen (NONE SEEN) Urine Mucus None seen (None Seen) Urine Trichomonas None seen (NONE SEEN) Urine Yeast None (NONE SEEN) Urinalysis Comment None Urine Culture Reflexed Indicated Band Neutrophils % 22% (1-5) Myelocytes % 1% (0-0) Vancomycin Level Trough 4.6mcg/mL Test 09/15/16 19:05 09/16/16 04:00 09/17/16 05:05 Hold Red Top Tube Received (Received) Magnesium Level 1.9mg/dL (1.6-2.6) White Blood Count 10.0th/mm3 (3.8-10.1) Red Blood Count 3.48mil/mm3 (3.90-5.20) Hemoglobin 10.9g/dL (12.0-15.6) Hematocrit 32.6% (35.0-46.0) Mean Corpuscular Volume 93.7fL (81-100) Mean Corpuscular Hemoglobin 31.3pg (27.0-35.0) Mean Corpuscular Hemoglobin Concent 33.4% (32.0-37.0) Red Cell Distribution Width 13.1% (12.3-15.4) Platelet Count 305bil/L (150-400) Neutrophils (%) (Auto) 53% (40-74) Lymphocytes (%) (Auto) 28% (14-46) Monocytes (%) (Auto) 10% (4-12) Eosinophils (%) (Auto) 9% (0-5) Basophils (%) (Auto) 0% (0-3) Sodium Level 138mEq/L (134-144) Potassium Level 3.6mEq/L (3.5-5.2) Chloride Level 99mEq/L (97-108) Carbon Dioxide Level 23mmol/L (18-29) Blood Urea Nitrogen 9mg/dL (8-27) Creatinine 0.56mg/dL (0.57-1.00) Estimat Glomerular Filtration Rate 151mL/min (>59) Glucose Level 104mg/dL (60-99) Lactic Acid Level 1.1mmol/L (0.4-2.0) Calcium Level 9.0mg/dL (8.5-10.1) Total Bilirubin 0.7mg/dL (0.0-1.2) Aspartate Amino Transf (AST/SGOT) 44U/L (0-50) Alanine Aminotransferase (ALT/SGPT) 40U/L (0-32) Alkaline Phosphatase 236U/L (25-165) Total Protein 6.4g/dL (6.4-8.4) Albumin 2.8g/dL (3.4-5.0) Procalcitonin 0.28ng/mL (0.00-0.08) Microbiology Results Abscess culture showed MRSA sensitive to vancomycin Urine showed no growth final Blood culture no growth at 2 days 2 Discharge Medications Discharge Medications Amlodipine (Amlodipine) 5 Mg Tablet 5 MG PO DAILY (Reported) Aspirin (Aspirin) 325 Mg Tablet.dr 325 MG PO DAILY (Reported) Atorvastatin (Lipitor) 40 Mg Tablet 40 MG PO DAILY (Reported) Calcium Carbonate/Vitamin D3 (Calcium 250+D Tablet) 1 Each Tablet 2 EACH PO DAILY (Reported) Cholecalciferol (Vitamin D3) (Vitamin D3) 2,000 Unit Tablet 2,000 UNIT PO DAILY (Reported) Furosemide (Furosemide) 20 Mg Tab 20 MG PO DAILY (Reported) Gluc/Miguel-MSM#2/C/D3/Colby/Born (Tikzhdfmwd-Luiqangfwfw-UPJ Tab) 1 Each Tablet 1 EACH PO DAILY (Reported) Hydrochlorothiazide (Hydrochlorothiazide) 25 Mg Tablet 25 MG PO DAILY (Reported ) Lamotrigine (Lamotrigine) 100 Mg Tablet 250 MG PO BID (Reported) Levetiracetam (Levetiracetam) 500 Mg Tab.er.24h 500 MG PO BID (Reported) Linezolid (Zyvox) 600 Mg Tablet 600 MG PO BID Prescribed by: LUISA BYRNES DO Losartan Potassium (Losartan Potassium) 50 Mg Tablet 50 MG PO DAILY (Reported) Metoprolol Succinate ER (Metoprolol Succinate ER) 100 Mg Tab.er.24h 100 MG PO DAILY (Reported) Mupirocin Nasal Oint (Bactroban Nasal Oint) 1 Gm Oint...g. 1 APPLIC NASAL BID Prescribed by: LUISA BYRNES DO [place]-3/Dha/Epa/Fish Oil (Fish Oil 1,000 mg Softgel) 1 Each Capsule 15 EACH PO DAILY (Reported) Petrolatum,White (Vaseline White Petroleum) 5 Gm Oint.pack 1 APPLIC TOPICAL BID (Reported) Potassium Chloride ER (Potassium Chloride ER) 10 Meq Tablet 10 MEQ PO DAILY ( Reported) TAKE WITH FOOD Triamcinolone Acet (Triamcinolone Acetonide Ointment) 1 Applic/0.25 Gm Oint 60 APPLIC TOP BID (Reported) As needed oxyCODONE (oxyCODONE) 5 Mg Tablet 5 MG PO Q4H PRN PRN For Moderate Pain Prescribed by: SUDEEP MCFARLANE DO Followup Plan Disposition: Patient discharged to SNF in stable condition Follow-up Provider: [facility] Follow-up with PCP in: 1 week Time spent Greater than 30 minutes was spent in preparation of discharge with greater than 50% of that time dedicated to patient counseling and coordination of care. . Attending Statement The patient was seen and examined together with Dr. Byrnes on 09/17/2016 and I agree with the history, exam and plan as outlined in the note above. . copies to: Will Barton MD, GILES A DO Sep 17, 2016 12:36 Adán Zurita MD Sep 18, 2016 07:21
--- NOTE | 2016-09-17 15:13 | NUR ---
Social Work- Discharge Data: EMR reviewed. Pt is on day 4 of hospitalization for cellulitis/sepsis per H&P. Pt to discharge today. Pt has been authorized to go to SNF. Mel, admissions at [facility], is agreeable to accepting pt today with MD Barton to follow. QING created packet and faxed orders. QING spoke with pt at bedside regarding discharge plan, pt agreeable to this. QING called brother J Carlos to alert him of pt's discharge. All updated and agreeable to plan. Pt to discharge to [facility] via cabulance at 1630. Paperwork in chart. PASRR has been faxed. RN, UC, pt/family, and [facility] all updated and agreeable to plan. Assessment: Pt who would benefit from SNF. Plan: Pt to discharge to [facility] via cabulance at 1630 with MD Barton to follow. RN, UC, pt/family, and [facility] all updated and agreeable to plan. JORGE Saldana Addendum: 09/17/16 at 1602 by AAMIR ZUÑIGA SS Per Studio Coordinator, pt requires wound vac. Spoke with Mel at [facility] who states that they have a wound vac available. Order faxed to [facility]. JORGE Saldana
[2016-09-17] MEDS ORDERED: OXYC5TAB72 PO (16:34)
--- NOTE | 2016-09-17 17:05 | NUR ---
Wound Care Patient seen at bedside for dressing changes of left arm wounds, drainage is copious and serosanguinous in nature, patient reports minimal discomfort at wounds rather she complains of severe pain at the left wrist where there is no deformity besides bruising from blood draws. Wound beds with muscle exposed in base of both wounds. Medial incision measures 13cm L x 4cm W x 3.5cm D with approx 1cm undermining around. Muscle red and healthy at base of wound. Subcutaneous and adipose tissue vary in appearance from desiccated to normal. Cleaned with NS. Packed with wound gel and 2" conform. Lateral incision measures 4cmL x 1.7cm W x 1.3cm D. Recommended to Dr Santiago that NPWT be utilized for these impressive wounds. Recommend NPWT with black foam over both wounds and 125 mmHg of continuous therapy and change dressing q 48-72 hours, follow up at the wound center with Dr Santiago in 1 week.
--- NOTE | 2016-09-17 17:07 | NUR ---
Discharge Pt IV was removed. Telemetry leads were removed. Pt was educated on her wound vac and the meds she would be taking at the SNF. Pt was sent with prescriptions. Report was called in to receiving RN and MAR will be faxed over. Pt received 1mg morphine prior to discharging due to pain in the L hand.
--- NOTE | 2016-09-17 17:08 | PCM.PNSURG ---
Subjective Date of Service: Sep 17, 2016 Date of Service: Sep 17, 2016 Visit Information: Reason for Visit Cellulitis,Sepsis Surgery/Surgery Date Post-Op Day # Date of Admission: Sep 13, 2016 at 15:12 Hospital Day # Subjective: Patient sitting at bedside with left bandage change in progress with wound care. Her pain is well controlled. She denies dizziness, chest pain, abdominal pain, nausea, vomiting, constipation, diarrhea. Reports mild shortness of breath. Objective Objective General: at bedside commode, No acute distress, well-developed, obese, well- nourished, appropriately interactive HEENT: Normocephalic, atraumatic. External ears without defect. Cardiovascular: Irregularly irregular rhythm. No murmurs present Pulmonary: Clear to auscultation bilaterally with no crackles, wheezes, or rhonchi. Normal respiratory effort with no use of accessory muscles. Abdomen: Bowel tones present. Soft, nontender, nondistended. Extremities: Left upper extremity wrapped in dressing. The dressing was removed and reveals two surgical incisions - lateral forearm incision approximately 5cm in length and the medial incision approximately 18cm in length. Both incisions contained packing with serosanguineous drainage. Neurological: Cranial nerves grossly intact. Psychiatric: Normal mood and affect. Alert and oriented to person, place, and time. Vital Sign- Last 8 Hours Date Time Temp Pulse Resp B/P Pulse Ox O2 Delivery O2 Flow Rate FiO2 09/17/16 15:13 101 09/17/16 12:31 36.9 94 18 153/76 94 Nasal Cannula 3.00 Intake and Output- Last 8 Hour 09/17/16 Cumulative From/Thru 06:59 09/13/16 12:52 - 09/17/16 06:18 Intake Total 600 ml 15964 ml Output Total 3150 ml 7500 ml Balance -2550 ml 4406 ml Intake Oral 600 ml 4556 ml IV Total 7350 ml Output Urine Total 2450 ml 6600 ml Urine/Stool Mix 700 ml 700 ml Estimated Blood Loss 200 ml # Voids 9 24 # Bowel Movements 2 4 Result Diagram: 09/17/16 0505 09/17/16 0505 Assessment & Plan Impression Left forearm abscess I&D status post Day # 1 MRSA positive. Problems: Plan Continue standard I&D wound care. Wound Care following. Continue Abx for MRSA per hospitalist. Will most likely require 7 days Abx as outpatient with linezolid. Per ID recommendations. She will require regular wound care visits as outpatient. Continue full diet. Encourage ambulation. Continue incentive spirometry. Wound vac recommended at SNF. VTE Prophylaxis: Sub-Q Heparin (Unfractionated) Resuscitation Status: CPR: Attempt Resuscitation Attending Statement: I agree with Dr. Akhtar's assessment and plan. BRANDON AKHTAR DO Sep 17, 2016 17:08 Steven Santiago MD Sep 20, 2016 09:09
== END 2016-09-17 17:12 | DRG 854 ==
LOC: SED 12:36 → PCC 15:12
PROVIDERS: ADMIT Urology; ATTEND Urology
PROC: 0J9H0ZZ Drainage of Left Lower Arm Subcutaneous Tissue and Fascia, Open Approach (ICD-10-PCS; principal; 2016-09-14 10:00)
DX: A41.9 Sepsis, unspecified organism (principal); L03.114 Cellulitis of left upper limb; I69.351 Hemiplegia and hemiparesis following cerebral infarction affecting right dominant side; E87.2 Acidosis; N17.9 Acute kidney failure, unspecified; L02.414 Cutaneous abscess of left upper limb; R65.20 Severe sepsis without septic shock; L30.9 Dermatitis, unspecified; F03.90 Unspecified dementia, unspecified severity, without behavioral disturbance, psychotic disturbance, mood disturbance, and anxiety; J45.909 Unspecified asthma, uncomplicated; J44.9 Chronic obstructive pulmonary disease, unspecified; I48.0 Paroxysmal atrial fibrillation; G40.909 Epilepsy, unspecified, not intractable, without status epilepticus; E78.5 Hyperlipidemia, unspecified; B95.62 Methicillin resistant Staphylococcus aureus infection as the cause of diseases classified elsewhere; D64.9 Anemia, unspecified; R74.0 Nonspecific elevation of levels of transaminase and lactic acid dehydrogenase [LDH]

== ENCOUNTER 2016-10-05 01:11 | Emergency (ER) | payer MEDICARE ==
[~2016-10-05] VITALS: Ht 162.6 cm; Wt 90.9 kg
[~2016-10-05 01:11] MED LIST changes: +AMLO5TAB2 PO; +CALC-235 PO; -CALC-881 PO; -CHOL200020 PO; +CHOL200025 PO; -EMOL177L7 TP; +FUR20 PO; +HYDR25TA4 PO; -LEVO750T39 PO; +LINE600T2 PO; -LOSA25TA21 PO; +LOSA50TA37 PO; +MUPI1OIN5 NASAL; -NIFE90TA31 PO; +OMEG-38 PO; +OXYC5TAB72 PO; +PETR5OIN3 TOPICAL
[2016-10-05 01:32] VITALS: BP 143/69; PULSE 58; RESP 18; O2SAT 98
--- NOTE | 2016-10-05 01:47 | ED.REPORT ---
HPI-General Illness Date of Service October 05, 2016 ED Provider: Padilla Gooden MD A 75 year old female with a history of CVA, A-fib, mild dementia and cyst removal presents to the ED with concern about wound vac that began earlier this evening. She is currently concerned because she unplugged the wound vac and states that "it doesn't sound right". Patient recently had a cyst removed approx. 3 weeks ago. Patient was sent to [facility] following the surgery and left 2 days ago. Patient last noticed fluid draining 5 days ago. She denies any other medical complaints at this time. Nursing Notes Stated Complaint: WOUND VAC BATTERY LOW Chief Complaint: Extremity Trauma Nursing Notes Reviewed: Yes Allergies: Coded Allergies: shellfish derived (Verified Allergy, Unknown, 06/02/15) warfarin (Verified Allergy, Unknown, 06/02/15) Uncoded Allergies: TRIMETHOPRIM/SULFA (Allergy, Unknown, severe shakiness, 03/25/15) Scheduled Amlodipine (Amlodipine) 5 Mg Tablet 5 MG PO DAILY Aspirin (Aspirin) 325 Mg Tablet.dr 325 MG PO DAILY Atorvastatin (Lipitor) 40 Mg Tablet 40 MG PO DAILY Calcium Carbonate/Vitamin D3 (Calcium 250+D Tablet) 1 Each Tablet 2 EACH PO DAILY Cholecalciferol (Vitamin D3) (Vitamin D3) 2,000 Unit Tablet 2,000 UNIT PO DAILY Furosemide (Furosemide) 20 Mg Tab 20 MG PO DAILY Gluc/Miguel-MSM#2/C/D3/Colby/Born (Qhrqnwkhao-Bptccdyxsci-UEE Tab) 1 Each Tablet 1 EACH PO DAILY Hydrochlorothiazide (Hydrochlorothiazide) 25 Mg Tablet 25 MG PO DAILY Lamotrigine (Lamotrigine) 100 Mg Tablet 250 MG PO BID Levetiracetam (Levetiracetam) 500 Mg Tab.er.24h 500 MG PO BID Linezolid (Zyvox) 600 Mg Tablet 600 MG PO BID Losartan Potassium (Losartan Potassium) 50 Mg Tablet 50 MG PO DAILY Metoprolol Succinate ER (Metoprolol Succinate ER) 100 Mg Tab.er.24h 100 MG PO DAILY Mupirocin Nasal Oint (Bactroban Nasal Oint) 1 Gm Oint...g. 1 APPLIC NASAL BID [place]us-3/Dha/Epa/Fish Oil (Fish Oil 1,000 mg Softgel) 1 Each Capsule 15 EACH PO DAILY Petrolatum,White (Vaseline White Petroleum) 5 Gm Oint.pack 1 APPLIC TOPICAL BID Potassium Chloride ER (Potassium Chloride ER) 10 Meq Tablet 10 MEQ PO DAILY TAKE WITH FOOD Triamcinolone Acet (Triamcinolone Acetonide Ointment) 1 Applic/0.25 Gm Oint 60 APPLIC TOP BID Scheduled PRN oxyCODONE (oxyCODONE) 5 Mg Tablet 5 MG PO Q4H PRN PRN For Moderate Pain General Time Seen by MD: 01:30 Chief Complaint Other (Wound Vac Check) Hx Obtained From: Patient Arrived By: Walk-in Sudden in Onset?: No Onset Occurred: 1 - 4 hours ago Symptom Duration: Since onset Pertinent Negative: Pt denies other symptoms Recent Healthcare: No recent hospitalization, Recent doctor visit Past Medical History Past Medical History Bilateral pleural effusion Chest discomfort-with multivessel coronary artery disease though no critical lesions History of paroxysmal atrial fibrillation, intolerant of warfarin and TSOACs History of CVA with mild persistent right-sided weakness Seizure disorder, stable Eczema History of asthma Mild dementia Reports: Asthma, COPD, Hyperlipidemia, Hypertension, Stroke Past Surgical History Per patient: brain surgery for abnormal growth behind her eyes Reports: Cholecystectomy Family History Noncontributory Smoking History Never Smoker Social History Alcohol Use: Denies alcohol use Drug Use: Denies drug use Other Social History: Good social support, Local resident Ambulatory Status Cane Review of Systems Pt's only concern at this time is the wound vac Full Review of Systems Constitutional: Denies: Chills, Fever Respiratory: Denies: Shortness of breath Cardiovascular: Denies: Chest pain GI: Denies: Abdominal pain, Nausea, Vomiting Neurologic: Denies: Change LOC Complete sys rev & neg: except as marked. Physical Exam Vital Signs Vital Signs Date Time Temp Pulse Resp B/P Pulse Ox O2 Delivery O2 Flow Rate FiO2 10/05/16 03:14 36.8 58 18 143/69 98 Room Air 10/05/16 01:32 36.8 58 18 143/69 98 Room Air Initial VS: Reviewed, Vital signs normal Neck: Supple, Non-tender, Full range of motion Skin: Warm, Dry, No cyanosis Neurologic: Alert, Oriented, Nonfocal Psychiatric: Mood/affect normal, Behavior normal, Normal thought content General/Constitutional: Awake, Alert, No acute distress Head / Eyes: Atraumatic, Normocephalic Respiratory / Chest: Atraumatic, No respiratory distress Cardiovascular: Peripheral circulation NL Upper Extremities Upper Extremity / MS: Atraumatic, Neurologic intact, Vascular intact UPPER EXTREMITIES: air leak at bandage without any surrounding erythema; Most of the area in question is covered with the bandage which was not removed Lower Extremity / Pelvis / MS: Atraumatic, Neurologic intact, Vascular intact Re-Eval/Medical Decision Med Decision/Clinical Course Wound VAC dressing air leak was corrected. No further action needed at this time. Time of Eval: 02:40 Patient Status: Condition improved Re-Evaluation/Progress Note: Patient is rechecked. The wound vac appears to be leaking. All of the patient's concerns about the wound vac are addressed. She understands and agrees with the plan to follow up. Counseled Regarding: Diagnosis, Need for follow-up, When/why to return to ED Discharge & Departure Primary Impression: Equipment malfunction Additional Impression: Chronic wound of extremity Disposition: Home Discharge Condition All VS Reviewed: Yes Condition: Improved Patient Instructions: Chronic Wounds (ED) Additional Instructions: There was a leak in the dressing so the wound VAC was pumping air. This was corrected. Keep it discharged. Follow-up with your equipment provider about the loose plug. Referrals: Arturo Bell DO (PCP) Scribe Attestation Portions of this note were transcribed by Cheryl Jacobs. I, Dr. Gooden personally performed the history, physical exam and medical decision-making; I reviewed and confirmed the accuracy of the information in the transcribed note. Signed by: Camille Tripp, 10/05/16 0253. copies to: Arturo Bell Howard L MD October 05, 2016 01:47 CHERYL JACOBS October 05, 2016 01:57
[2016-10-05 03:14] VITALS: BP 143/69; PULSE 58; RESP 18; O2SAT 98
== END 2016-10-05 03:05 | disposition home or self-care (01) ==
LOC: SED 01:11
DX: T88.8XXA Other specified complications of surgical and medical care, not elsewhere classified, initial encounter (principal); S41.101D Unspecified open wound of right upper arm, subsequent encounter; Y83.8 Other surgical procedures as the cause of abnormal reaction of the patient, or of later complication, without mention of misadventure at the time of the procedure; Y93.89 Activity, other specified; Y92.9 Unspecified place or not applicable; Y99.8 Other external cause status; I10 Essential (primary) hypertension; F03.90 Unspecified dementia, unspecified severity, without behavioral disturbance, psychotic disturbance, mood disturbance, and anxiety; I69.953 Hemiplegia and hemiparesis following unspecified cerebrovascular disease affecting right non-dominant side; E78.5 Hyperlipidemia, unspecified; J44.9 Chronic obstructive pulmonary disease, unspecified; J45.909 Unspecified asthma, uncomplicated; Z79.82 Long term (current) use of aspirin; Z79.899 Other long term (current) drug therapy; Z88.8 Allergy status to other drugs, medicaments and biological substances; Z91.013 Allergy to seafood; Z88.2 Allergy status to sulfonamides